=== PATIENT | female | born 1940 | race Caucasian/White ===

== ENCOUNTER → 2016-05-07 | Outpatient (CLI) | payer MEDICARE ==
[2016-05-07 13:42] LABS: CALCIUM LEVEL 9.4 MG/DL (8.8-10.2); CREATININE FOR GFR 1.25 MG/DL (0.55-1.02); GLOMERULAR FILTRATION RATE 44.6 (>39); POTASSIUM SERUM 4.8 MEQ/L (3.5-5.1)
== END ==
LOC: M WUC 10:16
PROVIDERS: ATTEND Nurse Practitioner Family
DX: Z91.89 Other specified personal risk factors, not elsewhere classified (principal)

== ENCOUNTER → 2016-08-26 | Outpatient (CLI) | payer MEDICARE ==
[2016-08-26 14:33] LABS: ALBUMIN 3.2 GM/DL (3.2-5.2); ALBUMIN/GLOBULIN RATIO 0.97 (1.00-1.93); BILIRUBIN,TOTAL 0.5 MG/DL (0.2-1.0); CALCIUM LEVEL 8.9 MG/DL (8.8-10.2); CREATININE FOR GFR 1.33 MG/DL (0.55-1.02); GLOMERULAR FILTRATION RATE 41.5 (>39); MAGNESIUM LEVEL 2.3 MG/DL (1.8-2.4); TOTAL PROTEIN 6.5 GM/DL (6.4-8.2)
== END ==
LOC: M WUC 09:47
PROVIDERS: ATTEND Internal Medicine
DX: E11.9 Type 2 diabetes mellitus without complications (principal); E78.00 Pure hypercholesterolemia, unspecified; I10 Essential (primary) hypertension

== ENCOUNTER → 2016-12-20 | Outpatient (CLI) | payer MEDICARE, OTHER ==
[2016-12-20 14:06] LABS: MEAN CORPUSCULAR HEMOGLOBIN 29.6 pg (27.0-33.0); MEAN CORPUSCULAR HGB CONC 32.1 g/dl (32.0-36.5)
[2016-12-20 14:43] LABS: ALBUMIN 3.2 GM/DL (3.2-5.2); ALBUMIN/GLOBULIN RATIO 0.97 (1.00-1.93); BILIRUBIN,DIRECT 0.1 MG/DL (0.0-0.2); BILIRUBIN,TOTAL 0.4 MG/DL (0.2-1.0); CREATININE FOR GFR 1.45 MG/DL (0.55-1.02); GLOMERULAR FILTRATION RATE 37.6 (>39); TOTAL PROTEIN 6.5 GM/DL (6.4-8.2)
== END ==
LOC: M WUC 12:26
PROVIDERS: ATTEND Internal Medicine
DX: Z79.899 Other long term (current) drug therapy (principal)

== ENCOUNTER → 2017-02-28 | Outpatient (CLI) | payer OTHER ==
[2017-02-28 14:09] LABS: MAGNESIUM LEVEL 2.2 MG/DL (1.8-2.4)
== END ==
LOC: M WUC 09:57
PROVIDERS: ATTEND Internal Medicine
DX: I10 Essential (primary) hypertension (principal); E78.00 Pure hypercholesterolemia, unspecified; E11.9 Type 2 diabetes mellitus without complications

== ENCOUNTER → 2017-03-04 | Outpatient (REF) | payer OTHER ==
[2017-03-04 13:32] LABS: MEAN CORPUSCULAR HEMOGLOBIN 28.7 pg (27.0-33.0); MEAN CORPUSCULAR HGB CONC 32.4 g/dl (32.0-36.5); MEAN CORPUSCULAR VOLUME 88.6 fl (80.0-96.0); PLATELET COUNT, AUTOMATED 420 10^3/uL (150-450); WHITE BLOOD COUNT 8.6 10^3/uL (4.0-10.0)
[2017-03-04 14:33] LABS: ALBUMIN 3.6 GM/DL (3.2-5.2); ALBUMIN/GLOBULIN RATIO 1.03 (1.00-1.93); BILIRUBIN,TOTAL 0.2 MG/DL (0.2-1.0); CALCIUM LEVEL 9.1 MG/DL (8.8-10.2); CREATININE FOR GFR 1.57 MG/DL (0.55-1.02); GLOMERULAR FILTRATION RATE 34.3 (>39); TOTAL PROTEIN 7.1 GM/DL (6.4-8.2)
== END ==
LOC: M SFHCPLAZ 11:51
PROVIDERS: ATTEND Internal Medicine
DX: E11.9 Type 2 diabetes mellitus without complications (principal); E03.9 Hypothyroidism, unspecified; Z51.81 Encounter for therapeutic drug level monitoring; Z79.899 Other long term (current) drug therapy

== ENCOUNTER → 2017-06-02 | Outpatient (CLI) | payer OTHER ==
[2017-06-02 17:08] LABS: ALT/SGPT 23 U/L (12-78); AST/SGOT 16 U/L (7-37); CREATININE FOR GFR 1.28 MG/DL (0.55-1.30); GLOMERULAR FILTRATION RATE 43.3 (>39)
[2017-06-02 17:29] LABS: HEMATOCRIT 33.6 % (36.0-47.0); HEMOGLOBIN 10.7 g/dl (12.0-16.0); MEAN CORPUSCULAR HEMOGLOBIN 27.8 pg (27.0-33.0); MEAN CORPUSCULAR HGB CONC 31.8 g/dl (32.0-36.5); MEAN CORPUSCULAR VOLUME 87.3 fl (80.0-96.0); PLATELET COUNT, AUTOMATED 412 10^3/uL (150-450); RED BLOOD COUNT 3.85 10^6/uL (4.00-5.40); RED CELL DISTRIBUTION WIDTH 18.3 % (11.5-14.5); WHITE BLOOD COUNT 9.4 10^3/uL (4.0-10.0)
== END ==
LOC: M WUC 12:01
DX: Z79.899 Other long term (current) drug therapy (principal)
CPT/HCPCS: 84460

== ENCOUNTER → 2017-08-05 | Outpatient (CLI) | payer MEDICARE ==
[2017-08-05 15:36] LABS: FREE T3 1.6 PG/ML (2.2-4.0); FREE T4 1.31 NG/DL (0.76-1.46); THYROID STIMULATING HORMONE 0.606 uIU/ML (0.358-3.740)
== END ==
LOC: M LAB 13:54
DX: Z01.818 Encounter for other preprocedural examination (principal); E03.9 Hypothyroidism, unspecified
CPT/HCPCS: 84443

== ENCOUNTER → 2017-08-05 | Outpatient (CLI) | payer MEDICARE ==
[2017-08-05 15:27] LABS: ANION GAP 7 MEQ/L (8-16); BLOOD UREA NITROGEN 25 MG/DL (7-18); CARBON DIOXIDE LEVEL 30 MEQ/L (21-32); CHLORIDE LEVEL 104 MEQ/L (98-107); CREATININE FOR GFR 1.66 MG/DL (0.55-1.30); GLOMERULAR FILTRATION RATE 32.1 (>39); GLUCOSE, FASTING 141 MG/DL (70-100); POTASSIUM SERUM 4.7 MEQ/L (3.5-5.1); SODIUM LEVEL 141 MEQ/L (136-145)
== END ==
LOC: M LAB 13:59
DX: Z01.89 Encounter for other specified special examinations (principal)

== ENCOUNTER → 2017-08-08 | Outpatient (CLI) | payer MEDICARE ==
[~2017-08-08] MED LIST: GASTROGRAFIN SOLUTION 30ML (Q9963) As Ordered; ISOVUE-370 76% 100ML VIAL (Q9967) As Ordered
== END ==
LOC: M RAD 12:00
DX: R10.33 Periumbilical pain (principal)
CPT/HCPCS: Q9963

== ENCOUNTER → 2017-09-19 | Outpatient (CLI) | payer MEDICARE ==
[2017-09-19 11:40] LABS: HEMATOCRIT 31.6 % (36.0-47.0); HEMOGLOBIN 10.1 g/dl (12.0-15.5); MEAN CORPUSCULAR HEMOGLOBIN 28.1 pg (27.0-33.0); MEAN CORPUSCULAR VOLUME 87.8 fl (80.0-96.0); PLATELET COUNT, AUTOMATED 401 10^3/uL (150-450); RED CELL DISTRIBUTION WIDTH 18.6 % (11.5-14.5); WHITE BLOOD COUNT 8.7 10^3/uL (4.0-10.0)
[2017-09-19 11:52] LABS: ESTIMATED AVERAGE GLUCOSE 171 MG/DL (60-110); HEMOGLOBIN A1c 7.6 %
[2017-09-19 12:45] LABS: ALBUMIN 3.4 GM/DL (3.2-5.2); ALBUMIN/GLOBULIN RATIO 1.03 (1.00-1.93); ALKALINE PHOSPHATASE 116 U/L (45-117); ALT/SGPT 21 U/L (12-78); ANION GAP 8 MEQ/L (8-16); AST/SGOT 12 U/L (7-37); BILIRUBIN,TOTAL 0.4 MG/DL (0.2-1.0); BLOOD UREA NITROGEN 24 MG/DL (7-18); CALCIUM LEVEL 8.8 MG/DL (8.8-10.2); CARBON DIOXIDE LEVEL 30 MEQ/L (21-32); CHLORIDE LEVEL 103 MEQ/L (98-107); CHOLESTEROL LEVEL 124 MG/DL (<200); CHOLESTEROL RISK RATIO 3.542 (<5); CREATININE FOR GFR 1.62 MG/DL (0.55-1.30); GLUCOSE, FASTING 140 MG/DL (70-100); HDL CHOLESTEROL 35 MG/DL (>40); MAGNESIUM LEVEL 1.9 MG/DL (1.8-2.4); NON-HDL-C 89 MG/DL; SODIUM LEVEL 141 MEQ/L (136-145); TOTAL PROTEIN 6.7 GM/DL (6.4-8.2); TRIGLYCERIDES LEVEL 160 MG/DL (<150)
== END ==
LOC: M WUC 10:02
DX: I10 Essential (primary) hypertension (principal); E11.9 Type 2 diabetes mellitus without complications; E78.00 Pure hypercholesterolemia, unspecified; Z51.81 Encounter for therapeutic drug level monitoring; Z79.899 Other long term (current) drug therapy
CPT/HCPCS: 83735

== ENCOUNTER → 2017-12-31 | Outpatient (CLI) | payer MEDICARE | LOC: M RAD 11:25 | DX: M25.531 Pain in right wrist (principal); Z53.8 Procedure and treatment not carried out for other reasons ==

== ENCOUNTER → 2018-02-16 | Outpatient (CLI) | payer MEDICARE ==
[2018-02-16 12:48] LABS: HEMATOCRIT 33.2 % (36.0-47.0); HEMOGLOBIN 10.5 g/dl (12.0-15.5); MEAN CORPUSCULAR HEMOGLOBIN 27.9 pg (27.0-33.0); MEAN CORPUSCULAR HGB CONC 31.6 g/dl (32.0-36.5); MEAN CORPUSCULAR VOLUME 88.3 fl (80.0-96.0); PLATELET COUNT, AUTOMATED 368 10^3/uL (150-450); RED BLOOD COUNT 3.76 10^6/uL (4.00-5.40); RED CELL DISTRIBUTION WIDTH 19.9 % (11.5-14.5); WHITE BLOOD COUNT 10.1 10^3/uL (4.0-10.0)
[2018-02-16 13:55] LABS: ALBUMIN 3.3 GM/DL (3.2-5.2); ALBUMIN/GLOBULIN RATIO 0.97 (1.00-1.93); ALKALINE PHOSPHATASE 117 U/L (45-117); ALT/SGPT 17 U/L (12-78); ANION GAP 9 MEQ/L (8-16); AST/SGOT 12 U/L (7-37); BILIRUBIN,TOTAL 0.3 MG/DL (0.2-1.0); BLOOD UREA NITROGEN 29 MG/DL (7-18); CALCIUM LEVEL 8.7 MG/DL (8.8-10.2); CARBON DIOXIDE LEVEL 27 MEQ/L (21-32); CHLORIDE LEVEL 105 MEQ/L (98-107); CREATININE FOR GFR 1.54 MG/DL (0.55-1.30); GLUCOSE, FASTING 172 MG/DL (70-100); POTASSIUM SERUM 4.8 MEQ/L (3.5-5.1); SODIUM LEVEL 141 MEQ/L (136-145); TOTAL PROTEIN 6.7 GM/DL (6.4-8.2)
== END ==
LOC: M WUC 10:39
DX: L40.50 Arthropathic psoriasis, unspecified (principal); Z79.899 Other long term (current) drug therapy
CPT/HCPCS: 80053

== ENCOUNTER → 2018-03-27 | Outpatient (REF) | payer MEDICARE, MEDICAID ==
[2018-03-27 12:15] LABS: HEMATOCRIT 33.6 % (36.0-47.0); HEMOGLOBIN 10.6 g/dl (12.0-15.5); MEAN CORPUSCULAR HEMOGLOBIN 28.4 pg (27.0-33.0); MEAN CORPUSCULAR HGB CONC 31.5 g/dl (32.0-36.5); MEAN CORPUSCULAR VOLUME 90.1 fl (80.0-96.0); PLATELET COUNT, AUTOMATED 447 10^3/uL (150-450); RED BLOOD COUNT 3.73 10^6/uL (4.00-5.40); WHITE BLOOD COUNT 9.8 10^3/uL (4.0-10.0)
[2018-03-27 12:25] LABS: ALBUMIN 3.6 GM/DL (3.2-5.2); BILIRUBIN,TOTAL 0.4 MG/DL (0.2-1.0); CALCIUM LEVEL 9.2 MG/DL (8.8-10.2); CREATININE FOR GFR 1.38 MG/DL (0.55-1.30); FREE T4 1.58 NG/DL (0.76-1.46); GLOMERULAR FILTRATION RATE 39.7 (>39); MAGNESIUM LEVEL 1.7 MG/DL (1.8-2.4); POTASSIUM SERUM 4.7 MEQ/L (3.5-5.1); THYROID STIMULATING HORMONE 0.84 uIU/ML (0.358-3.740); TOTAL PROTEIN 6.9 GM/DL (6.4-8.2)
[2018-03-27 12:28] LABS: PTH INTACT 84.3 PG/ML (18.5-88.0)
[2018-03-27 12:29] LABS: HEMOGLOBIN A1c 7.3 %
[2018-03-27 12:53] LABS: CREATININE, URINE 80.8 MG/DL; MALB URINE SIEMENS 6.6 MG/L; MAU/CREAT RATIO 8.1 MCG/MG (0.0-30.0)
== END ==
LOC: M SFHCPLAZ 10:36
PROVIDERS: ATTEND Internal Medicine
DX: Z51.81 Encounter for therapeutic drug level monitoring (principal); Z79.899 Other long term (current) drug therapy; L40.50 Arthropathic psoriasis, unspecified; E03.9 Hypothyroidism, unspecified; E11.22 Type 2 diabetes mellitus with diabetic chronic kidney disease; N18.3 Chronic kidney disease, stage 3 (moderate)

== ENCOUNTER → 2018-04-20 | Outpatient (CLI) | payer MEDICARE, MEDICAID ==
--- NOTE | 2018-04-20 09:31 | REP ---
CT chest without contrast: History: Pulmonary nodule. Comparison chest CT study is from November 01, 2017. This is reported as showing a 4 mm nodule in the right upper lobe. Comparison study is also reviewed from August 08, 2017. Findings: On today's CT study, the 4 mm right upper lobe nodule displays a maximum Hounsfield unit density # of 346. It is felt to be consistent with a benign granuloma. There is mild linear fibrosis anteromedially in the right upper lobe. This is unchanged. There is bilateral lower lobe fibro atelectatic change which is also status quo from the prior study. There are multiple calcified granulomata in the right middle lobe unchanged. There is stable noncalcified nodule in the right middle lobe which measures 5 mm. This is seen on page 45 of 98 in series 201 of today's study. There are scattered mediastinal lymph nodes again noted. The largest of these is a pretracheal lymph node which measures 8 mm in short axis dimension. There is a 7 mm pretracheal lymph node just proximal to this. No evidence of adenopathy. No adrenal lesion is observed. There are clips in the gallbladder fossa. The visualized upper abdominal structures are otherwise unremarkable. Impression: Stable noncalcified 5 mm right middle lobe guerrero bronchovascular nodule unchanged from November 01, 2017. The 4 mm nodule in the right upper lobe is stable but today's CT images suggest that it is a benign calcified granuloma. There are other granulomatous calcifications in the right middle lobe and there is bibasilar fibrosis again noted. Repeat chest CT study suggested 1 year. Electronically Signed by Gume Mock MD 04/20/2018 09:22 A
== END ==
LOC: M RAD 06:50
PROVIDERS: ATTEND Internal Medicine
DX: R91.1 Solitary pulmonary nodule (principal)

== ENCOUNTER → 2018-06-25 | Outpatient (REF) | payer MEDICARE, MEDICAID ==
[2018-06-25 14:00] LABS: FOLATE > 24.0 NG/ML (>5.4); FREE T4 1.58 NG/DL (0.76-1.46); RHEUMATOID FACTOR QUANT < 10.0 IU/ML (<15.0); THYROID STIMULATING HORMONE 0.356 uIU/ML (0.358-3.740); VITAMIN B12 LEVEL 345 PG/ML (247-911)
[2018-06-30 15:03] LABS: ANTI DOUBLE STRAND-DNA AB 38 IU/mL (0-9); ANTINUCLEAR ANTIBODIES DIRECT Positive (Negative); Lyme Disease IgG/IgM Antibodie <0.91 ISR (0.00-0.90); Lyme Disease IgM Ab Quantitati <0.80 index (0.00-0.79); RNP ANTIBODIES <0.2 AI (0.0-0.9); SJOGREN'S ANTI SS-A <0.2 AI (0.0-0.9); SJOGREN'S ANTI SS-B <0.2 AI (0.0-0.9); SMITH ANTIBODIES <0.2 AI (0.0-0.9); VITAMIN B1 LEVEL WHOLE BLOOD 260.4 nmol/L (66.5-200.0); VITAMIN B6,PYRIDOXAL PHOSPHATE 8.8 ug/L (2.0-32.8); VITAMIN E(ALPHA TOCOPHEROL) 15.9 mg/L (9.0-29.0); VITAMIN E(GAMMA TOCOPHEROL) 2.2 mg/L (0.5-4.9)
== END ==
LOC: M LABNEURO 10:48
PROVIDERS: ATTEND Psychiatry & Neurology Neurology
DX: R20.0 Anesthesia of skin (principal); R51 Headache; E07.9 Disorder of thyroid, unspecified; Z11.8 Encounter for screening for other infectious and parasitic diseases

== ENCOUNTER → 2018-08-12 | Outpatient (REF) | payer MEDICARE, MEDICAID ==
[2018-08-12 12:28] LABS: HEMATOCRIT 33.6 % (36.0-47.0); HEMOGLOBIN 10.6 g/dl (12.0-15.5); MEAN CORPUSCULAR HEMOGLOBIN 27.9 pg (27.0-33.0); MEAN CORPUSCULAR HGB CONC 31.5 g/dl (32.0-36.5); MEAN CORPUSCULAR VOLUME 88.4 fl (80.0-96.0); PLATELET COUNT, AUTOMATED 348 10^3/uL (150-450); WHITE BLOOD COUNT 6.8 10^3/uL (4.0-10.0)
[2018-08-12 12:49] LABS: ALBUMIN 3.3 GM/DL (3.2-5.2); BILIRUBIN,TOTAL 0.5 MG/DL (0.2-1.0); CALCIUM LEVEL 9.2 MG/DL (8.8-10.2); CHOLESTEROL RISK RATIO 3.891 (<5); CREATININE FOR GFR 1.4 MG/DL (0.55-1.30); GLOMERULAR FILTRATION RATE 38.9 (>39); MAGNESIUM LEVEL 2.1 MG/DL (1.8-2.4); PTH INTACT 59.9 PG/ML (18.5-88.0); TOTAL PROTEIN 6.7 GM/DL (6.4-8.2)
[2018-08-12 13:40] LABS: HEMOGLOBIN A1c 7.4 %
== END ==
LOC: M SFHCPLAZ 09:30
PROVIDERS: ATTEND Internal Medicine
DX: N18.3 Chronic kidney disease, stage 3 (moderate) (principal); D63.1 Anemia in chronic kidney disease; E78.00 Pure hypercholesterolemia, unspecified; E11.9 Type 2 diabetes mellitus without complications

== ENCOUNTER → 2018-11-02 | Outpatient (REF) | payer MEDICARE, MEDICAID | LOC: M LAB REF 12:50 | PROVIDERS: ATTEND Internal Medicine Gastroenterology | DX: R19.7 Diarrhea, unspecified (principal); R10.11 Right upper quadrant pain; R11.0 Nausea; R14.3 Flatulence ==

== ENCOUNTER → 2018-11-23 | Outpatient (CLI) | payer MEDICARE, MEDICAID ==
[2018-11-23 10:14] LABS: BASO # 0.1 10^3/uL (0.0-0.2); BASO % 1.1 % (0.0-1.0); EOS # 0.6 10^3/uL (0.0-0.5); EOS % 6.6 % (0.0-3.0); HEMATOCRIT 37.8 % (36.0-47.0); HEMOGLOBIN 12.1 g/dl (12.0-15.5); LYMPH # 1.6 10^3/uL (1.5-5.0); MEAN CORPUSCULAR HEMOGLOBIN 30.3 pg (27.0-33.0); MEAN CORPUSCULAR VOLUME 94.7 fl (80.0-96.0); MONO # 0.5 10^3/uL (0.0-0.8); PLATELET COUNT, AUTOMATED 316 10^3/uL (150-450); RED BLOOD COUNT 3.99 10^6/uL (4.00-5.40); WHITE BLOOD COUNT 8.8 10^3/uL (4.0-10.0)
[2018-11-23 10:35] LABS: ERYTHROCYTE SEDIMENTATION RATE 15 mm/hr (0-30)
[2018-11-23 10:56] LABS: ALBUMIN 3.5 GM/DL (3.2-5.2); BILIRUBIN,TOTAL 0.3 MG/DL (0.2-1.0); CALCIUM LEVEL 9.4 MG/DL (8.8-10.2); CREATININE FOR GFR 1.61 MG/DL (0.55-1.30); GLOMERULAR FILTRATION RATE 33.1 (>39); POTASSIUM SERUM 5.1 MEQ/L (3.5-5.1); TOTAL PROTEIN 6.9 GM/DL (6.4-8.2)
== END ==
LOC: M LAB 09:27
PROVIDERS: ATTEND Internal Medicine Rheumatology
DX: L40.50 Arthropathic psoriasis, unspecified (principal)

== ENCOUNTER → 2019-02-18 | Outpatient (REF) | payer MEDICARE, MEDICAID | LOC: M SFHCPLAZ 13:25 | PROVIDERS: ATTEND Nurse Practitioner Adult Health | DX: R30.0 Dysuria (principal) ==

== ENCOUNTER → 2019-02-18 | Outpatient (REF) | payer MEDICARE, MEDICAID ==
[2019-02-18 12:30] LABS: HEMATOCRIT 38.2 % (36.0-47.0); HEMOGLOBIN 12.1 g/dl (12.0-15.5); MEAN CORPUSCULAR HEMOGLOBIN 30.9 pg (27.0-33.0); MEAN CORPUSCULAR HGB CONC 31.7 g/dl (32.0-36.5); MEAN CORPUSCULAR VOLUME 97.7 fl (80.0-96.0); PLATELET COUNT, AUTOMATED 281 10^3/uL (150-450); RED BLOOD COUNT 3.91 10^6/uL (4.00-5.40); WHITE BLOOD COUNT 7.1 10^3/uL (4.0-10.0)
[2019-02-18 12:37] LABS: ALBUMIN 3.5 GM/DL (3.2-5.2); BILIRUBIN,TOTAL 0.4 MG/DL (0.2-1.0); CHOLESTEROL RISK RATIO 3.239 (<5); CREATININE FOR GFR 1.47 MG/DL (0.55-1.30); FREE T3 1.8 PG/ML (2.2-4.0); FREE T4 1.65 NG/DL (0.76-1.46); GLOMERULAR FILTRATION RATE 36.8 (>39); MAGNESIUM LEVEL 2.2 MG/DL (1.8-2.4); POTASSIUM SERUM 4.7 MEQ/L (3.5-5.1); PTH INTACT 74.8 PG/ML (18.5-88.0); THYROID STIMULATING HORMONE 0.409 uIU/ML (0.358-3.740); TOTAL PROTEIN 6.4 GM/DL (6.4-8.2)
[2019-02-18 12:48] LABS: HEMOGLOBIN A1c 7.4 %
== END ==
LOC: M SFHCPLAZ 09:45
PROVIDERS: ATTEND Internal Medicine
DX: I12.9 Hypertensive chronic kidney disease with stage 1 through stage 4 chronic kidney disease, or unspecified chronic kidney disease (principal); D63.1 Anemia in chronic kidney disease; E03.9 Hypothyroidism, unspecified; E11.9 Type 2 diabetes mellitus without complications; E78.00 Pure hypercholesterolemia, unspecified; N18.3 Chronic kidney disease, stage 3 (moderate); R30.0 Dysuria

== ENCOUNTER → 2019-04-14 | Outpatient (CLI) | payer MEDICARE, MEDICAID ==
[2019-04-14 16:16] LABS: CREATININE FOR GFR 1.5 MG/DL (0.55-1.30); GLOMERULAR FILTRATION RATE 35.8 (>39)
== END ==
LOC: M LAB 15:17
PROVIDERS: ATTEND Internal Medicine Gastroenterology
DX: R19.7 Diarrhea, unspecified (principal); R10.9 Unspecified abdominal pain

== ENCOUNTER → 2019-04-16 | Outpatient (CLI) | payer MEDICARE, MEDICAID ==
[~2019-04-16] MED LIST changes: -GASTROGRAFIN SOLUTION 30ML (Q9963) As Ordered; +GASTROGRAFIN SOLUTION 30ML (Q9963) As Ordered ONE; -ISOVUE-370 76% 100ML VIAL (Q9967) As Ordered; +ISOVUE-370 76% 100ML VIAL (Q9967) As Ordered ONE
--- NOTE | 2019-04-16 15:50 | REPVR ---
PROCEDURE INFORMATION: Exam: CT Abdomen And Pelvis With Contrast Exam date and time: 04/16/2019 3:01 PM Age: 79 years old Clinical indication: Abdominal pain; Generalized; Additional info: Diarrhea, abd pain TECHNIQUE: Imaging protocol: Computed tomography of the abdomen and pelvis with intravenous contrast. Radiation optimization: All CT scans at this facility use at least one of these dose optimization techniques: automated exposure control; mA and/or kV adjustment per patient size (includes targeted exams where dose is matched to clinical indication); or iterative reconstruction. Contrast material: ISOVUE 370; Contrast volume: 100 ml; Contrast route: IV; COMPARISON: CT ABD PELVIS WITH CONTRAST 08/08/2017 2:21 PM FINDINGS: Lungs: Mild atelectasis and scarring is present at the lung bases. Pleural space: There is again mild right basilar pleural thickening or effusion. Liver: The liver is fatty in density. It appears otherwise unremarkable. Gallbladder and bile ducts: Cholecystectomy clips are again present. Pancreas: Normal. No ductal dilation. Spleen: Normal. No splenomegaly. Adrenals: Normal. No mass. Kidneys and ureters: The kidneys again demonstrate mild cortical thinning. The right contains a stable 4 mm hypodense lesion, too small to characterize, but homogeneous and not requiring follow-up. Stomach and bowel: The small bowel is not obstructed. There is again mild descending and sigmoid colonic diverticulosis without evidence for diverticulitis. The large bowel is otherwise grossly unremarkable in appearance. Appendix: The appendix is not identified, compatible with the previously given history of prior appendectomy. Intraperitoneal space: No free air or significant free fluid. Vasculature: Unremarkable. No abdominal aortic aneurysm. Lymph nodes: There is a fairly similar appearance to multiple prominent but subcentimeter short axis mesenteric lymph nodes and. A mildly enlarged alison hepatis lymph node measuring 13 mm short axis appears fairly similar. No new pathologic lymphadenopathy is identified. Bladder: Grossly unremarkable. Reproductive: There has again been hysterectomy. No gross adnexal abnormality is apparent, but ultrasound would be more appropriate in this regard. Bones/joints: Degenerative changes again involve the spine and hips. Soft tissues: There is again scarring along the low anterior pelvic wall. There is again soft tissue thickening about the umbilicus, probably some scarring. IMPRESSION: Nonurgent findings similar to 08/03 08/01, without acute abnormality identified. This includes some prominent but subcentimeter short axis mesenteric lymph nodes and a mildly enlarged alison hepatis lymph node. Electronically signed by: Tim Worley On 04/16/2019 15:51:41 PM
== END ==
LOC: M RAD 12:57
PROVIDERS: ATTEND Internal Medicine Gastroenterology
DX: R19.7 Diarrhea, unspecified (principal); R10.9 Unspecified abdominal pain
CPT/HCPCS: 74177; Q9963; Q9967

== ENCOUNTER 2019-07-19 14:53 | Emergency (ER) | payer MEDICARE, MEDICAID ==
[~2019-07-19] VITALS: Ht 160 cm; Wt 89.0 kg
[2019-07-19] MEDS ORDERED: LEVO112T2 (15:08)
[2019-07-19] MEDS ORDERED: FURO20TA2 (15:08)
[2019-07-19] MEDS ORDERED: METF500T13 (15:08)
[2019-07-19] MEDS ORDERED: METH2.5T48 (15:08)
[2019-07-19] MEDS ORDERED: PROP160C (15:08)
[2019-07-19] MEDS ORDERED: LISI-538 (15:08)
[2019-07-19] MEDS ORDERED: FOLI1TAB11 (15:08)
[2019-07-19] MEDS ORDERED: FLUTISP (15:08)
[2019-07-19] MEDS ORDERED: GLIP5TAB8 (15:08)
[2019-07-19 17:17] VITALS: BP 147/72
--- NOTE | 2019-07-19 17:46 | REP ---
DEEP VENOUS ULTRASONOGRAPHY RIGHT THIGH, RULE OUT DVT: REASON: Pain, swelling, and erythema. TECHNIQUE: Multiple ultrasonographic images of the deep venous structures of the thigh were obtained from the common femoral vein to the popliteal vein along with Doppler interrogation and color flow Doppler images. FINDINGS: There is no abnormal echogenic material seen within any of the visualized deep venous structures that would suggest acute thrombosis. Coaptation is unremarkable throughout. Doppler interrogation shows an expected response to respiratory variability and augmentation. The color flow images show what appears to be a normal vascular pattern throughout. IMPRESSION: There is no ultrasonographic evidence of deep venous thrombosis involving any of the visualized deep venous structures of the right thigh, as described above. Electronically Signed by Jim Castro DO 07/19/2019 06:12 P
== END 2019-07-19 17:18 | disposition home or self-care (01) ==
LOC: M ED 14:53
DX: M54.31 Sciatica, right side (principal); I12.9 Hypertensive chronic kidney disease with stage 1 through stage 4 chronic kidney disease, or unspecified chronic kidney disease; N18.3 Chronic kidney disease, stage 3 (moderate); E11.22 Type 2 diabetes mellitus with diabetic chronic kidney disease; E03.9 Hypothyroidism, unspecified; K57.92 Diverticulitis of intestine, part unspecified, without perforation or abscess without bleeding; L40.54 Psoriatic juvenile arthropathy; Z88.2 Allergy status to sulfonamides; Z88.8 Allergy status to other drugs, medicaments and biological substances; Z91.02 Food additives allergy status; Z79.899 Other long term (current) drug therapy; Z79.84 Long term (current) use of oral hypoglycemic drugs

== ENCOUNTER → 2019-07-29 | Outpatient (CLI) | payer MEDICARE, MEDICAID ==
[~2019-07-29] MED LIST changes: +FLUTISP; +FOLI1TAB11; +FURO20TA2; -GASTROGRAFIN SOLUTION 30ML (Q9963) As Ordered ONE; +GLIP5TAB8; -ISOVUE-370 76% 100ML VIAL (Q9967) As Ordered ONE; +LEVO112T2; +LISI-538; +METF500T13; +METH2.5T48; +PROP160C
== END ==
LOC: M LABSMTC 11:17
PROVIDERS: ATTEND Family Medicine
DX: Z11.59 Encounter for screening for other viral diseases (principal)
CPT/HCPCS: C9803; U0003

== ENCOUNTER → 2019-08-18 | Outpatient (REF) | payer MEDICARE, MEDICAID ==
[2019-08-18 12:54] LABS: HEMOGLOBIN 12.9 g/dl (12.0-15.5); MEAN CORPUSCULAR HEMOGLOBIN 33.1 pg (27.0-33.0); MEAN CORPUSCULAR HGB CONC 33.1 g/dl (32.0-36.5); PLATELET COUNT, AUTOMATED 275 10^3/uL (150-450); WHITE BLOOD COUNT 7.4 10^3/uL (4.0-10.0)
[2019-08-18 13:20] LABS: MALB URINE SIEMENS 78.4 MG/L; MAU/CREAT RATIO 19.8 MCG/MG (0.0-30.0)
[2019-08-18 13:25] LABS: ERYTHROCYTE SEDIMENTATION RATE 14 mm/hr (0-30)
[2019-08-18 13:30] LABS: ALBUMIN 3.4 GM/DL (3.2-5.2); BILIRUBIN,TOTAL 0.6 MG/DL (0.2-1.0); C REACTIVE PROTEIN QUANTITATIV 1.26 MG/DL (0.00-0.30); CALCIUM LEVEL 9.1 MG/DL (8.8-10.2); CREATININE FOR GFR 1.39 MG/DL (0.55-1.30); FREE T3 2.1 PG/ML (2.2-4.0); FREE T4 1.59 NG/DL (0.76-1.46); GLOMERULAR FILTRATION RATE 39.1 (>39); POTASSIUM SERUM 5.2 MEQ/L (3.5-5.1); THYROID STIMULATING HORMONE 0.356 uIU/ML (0.358-3.740); TOTAL PROTEIN 6.7 GM/DL (6.4-8.2)
[2019-08-18 14:15] LABS: HEMOGLOBIN A1c 7.1 %
== END ==
LOC: M PLALAB 10:11
PROVIDERS: ATTEND Internal Medicine
DX: N18.9 Chronic kidney disease, unspecified (principal); L40.50 Arthropathic psoriasis, unspecified; E03.9 Hypothyroidism, unspecified; E11.9 Type 2 diabetes mellitus without complications; E78.00 Pure hypercholesterolemia, unspecified; D63.1 Anemia in chronic kidney disease

== ENCOUNTER → 2019-09-14 | Outpatient (CLI) | payer MEDICARE, MEDICAID ==
--- NOTE | 2019-09-14 14:44 | REP ---
Clinical: Pulmonary nodule follow-up. Technique: Axial noncontrast images from the thoracic inlet to the upper abdomen with coronal and sagittal re-formations. Comparison: 04/20/2018. Findings: 4 mm noncalcified nodule in the right apex and 5 mm noncalcified peribronchial nodule in the right middle lobe along with few scattered calcified granulomata and minimal bibasilar fibro atelectatic changes remain stable. The lung krueger are otherwise relatively well aerated and without acute consolidation, new significant nodule or mass lesion. No pleural effusion. No pneumothorax. No significant adenopathy. Further evaluation of the mediastinum demonstrates relatively normal stable thoracic aorta, pulmonary vasculature and heart/pericardium. Musculoskeletal structures without acute osseous abnormality. Limited upper abdomen demonstrates normal bilateral adrenal glands and evidence of prior cholecystectomy. Impression: 1. Stable right upper lobe and right middle lobe noncalcified nodules along with chronic granulomatous changes. Consider 6-9 month follow-up reevaluation to confirm benignity and stability. 2. No acute mediastinal or pleuroparenchymal process. Electronically Signed by Geovanny Parra MD 09/14/2019 02:36 P
== END ==
LOC: M RAD 14:00
PROVIDERS: ATTEND Internal Medicine
DX: R91.1 Solitary pulmonary nodule (principal)

== ENCOUNTER → 2019-12-30 | Outpatient (REF) | payer OTHER, MEDICAID ==
[2019-12-30 14:08] LABS: BASO # 0.1 10^3/uL (0.0-0.2); BASO % 1.2 % (0.0-1.0); EOS # 0.4 10^3/uL (0.0-0.5); EOS % 5.2 % (0.0-3.0); LYMPH # 1.8 10^3/uL (1.5-5.0); LYMPH % 25.5 % (24.0-44.0); MEAN CORPUSCULAR HGB CONC 32.5 g/dl (32.0-36.5); MEAN CORPUSCULAR VOLUME 98.5 fl (80.0-96.0); MONO # 0.7 10^3/uL (0.0-0.8); MONO % 9.6 % (0.0-5.0); NEUTROPHILS % 58.2 % (36.0-66.0); PLATELET COUNT, AUTOMATED 270 10^3/uL (150-450); RED BLOOD COUNT 4.06 10^6/uL (4.00-5.40); WHITE BLOOD COUNT 6.9 10^3/uL (4.0-10.0)
[2019-12-30 14:42] LABS: ALBUMIN 3.5 GM/DL (3.2-5.2); BILIRUBIN,TOTAL 0.5 MG/DL (0.2-1.0); C REACTIVE PROTEIN QUANTITATIV 0.3 MG/DL (0.00-0.30); CALCIUM LEVEL 9.1 MG/DL (8.8-10.2); CHOLESTEROL RISK RATIO 3.4 (<5); CREATININE FOR GFR 1.57 MG/DL (0.55-1.30); MAGNESIUM LEVEL 2.1 MG/DL (1.8-2.4); POTASSIUM SERUM 5.2 MEQ/L (3.5-5.1); THYROID STIMULATING HORMONE 0.526 uIU/ML (0.358-3.740); TOTAL PROTEIN 6.6 GM/DL (6.4-8.2)
[2019-12-30 14:57] LABS: HEMOGLOBIN A1c 6.8 %
[2019-12-30 15:29] LABS: ERYTHROCYTE SEDIMENTATION RATE 10 mm/hr (0-30)
== END ==
LOC: M PLALAB 10:10
PROVIDERS: ATTEND Internal Medicine
DX: G47.30 Sleep apnea, unspecified (principal); E11.9 Type 2 diabetes mellitus without complications; L40.50 Arthropathic psoriasis, unspecified; E78.00 Pure hypercholesterolemia, unspecified; I12.9 Hypertensive chronic kidney disease with stage 1 through stage 4 chronic kidney disease, or unspecified chronic kidney disease; E03.9 Hypothyroidism, unspecified

== ENCOUNTER → 2020-01-03 | Outpatient (REF) | payer OTHER, MEDICAID ==
[2020-01-03 19:05] LABS: CREATININE, URINE 36.6 MG/DL; MALB URINE SIEMENS < 5.0 MG/L; MAU/CREAT RATIO 13.6 MCG/MG (0.0-30.0)
== END ==
LOC: M SFHCPLAZ 16:47
PROVIDERS: ATTEND Internal Medicine
DX: E11.9 Type 2 diabetes mellitus without complications (principal); Z23 Encounter for immunization
CPT/HCPCS: 82043; 90682; G0008; G0463

== ENCOUNTER → 2020-03-01 | Outpatient (CLI) | payer OTHER, MEDICAID ==
[~2020-03-01] MED LIST changes: +FLON1SPR; +FOLI1TAB11 PO; +FURO20TA2 PO; +GLIP5TAB8 PO; +LANS30CA PO; -LISI-538; +LISI-538 PO; +MAGN400T3 PO; +METH2.5T48 PO; +PROP160C PO; +SULI150T; +SULI150T PO; +SYNT112T2 PO; +VITMTA PO
--- NOTE | 2020-03-01 15:24 | REPPI ---
INDICATION: SHORTNESS OF BREATH. COMPARISON: Comparison chest CT study September 14, 2019. TECHNIQUE: Two views.. FINDINGS: Right hemidiaphragm remains somewhat elevated. There is mild linear fibrosis in both perihilar regions unchanged. Pleural angles are sharp. Heart is felt to be mildly enlarged but is unchanged. There are clips in right upper quadrant of the abdomen. No evidence of pleural effusion. Pulmonary vasculature is not increased. There are degenerative changes in the thoracic spine. No acute bony abnormality. IMPRESSION: Elevated right hemidiaphragm and bibasilar linear fibrosis similar to the September 14, 2019 CT findings. Otherwise no active disease. <Electronically signed by Omar Mock > 03/01/20 [id number]
== END ==
LOC: M PLAIMG 11:41
PROVIDERS: ATTEND Physician Assistant
DX: J84.10 Pulmonary fibrosis, unspecified (principal); M51.34 Other intervertebral disc degeneration, thoracic region; R06.02 Shortness of breath; Z20.828 Contact with and (suspected) exposure to other viral communicable diseases
CPT/HCPCS: 36415; 71046; 80053; 83605; 85025; U0003

== ENCOUNTER → 2020-03-03 | Outpatient (REF) | payer OTHER, MEDICAID ==
[2020-03-03 15:05] LABS: BASO # 0.1 10^3/uL (0.0-0.2); BASO % 0.8 % (0.0-1.0); EOS # 0.4 10^3/uL (0.0-0.5); EOS % 2.9 % (0.0-3.0); HEMATOCRIT 39.5 % (36.0-47.0); HEMOGLOBIN 12.6 g/dl (12.0-15.5); LYMPH # 2.3 10^3/uL (1.5-5.0); LYMPH % 19.3 % (24.0-44.0); MEAN CORPUSCULAR HEMOGLOBIN 31.4 pg (27.0-33.0); MEAN CORPUSCULAR HGB CONC 31.9 g/dl (32.0-36.5); MEAN CORPUSCULAR VOLUME 98.5 fl (80.0-96.0); MONO # 1.2 10^3/uL (0.0-0.8); MONO % 9.6 % (0.0-5.0); PLATELET COUNT, AUTOMATED 413 10^3/uL (150-450); RED BLOOD COUNT 4.01 10^6/uL (4.00-5.40)
[2020-03-03 15:21] LABS: ALBUMIN 3.3 GM/DL (3.2-5.2); BILIRUBIN,TOTAL 0.5 MG/DL (0.2-1.0); CALCIUM LEVEL 9.4 MG/DL (8.8-10.2); CREATININE FOR GFR 1.76 MG/DL (0.55-1.30); GLOMERULAR FILTRATION RATE 29.8 (>39); POTASSIUM SERUM 5.2 MEQ/L (3.5-5.1); TOTAL PROTEIN 6.9 GM/DL (6.4-8.2)
== END ==
LOC: M SFHCLERA 14:02
PROVIDERS: ATTEND Physician Assistant
DX: R89.9 Unspecified abnormal finding in specimens from other organs, systems and tissues (principal)

== ENCOUNTER → 2020-03-06 | Outpatient (REF) | payer OTHER, MEDICAID | LOC: M SFHCPLAZ 13:17 | PROVIDERS: ATTEND Physician Assistant | DX: R89.9 Unspecified abnormal finding in specimens from other organs, systems and tissues (principal) ==

== ENCOUNTER → 2020-03-07 | Outpatient (CLI) | payer OTHER, MEDICAID ==
[2020-03-07 18:02] LABS: BASO % 0.5 % (0.0-1.0); EOS % 0.6 % (0.0-3.0); HEMATOCRIT 38.9 % (36.0-47.0); HEMOGLOBIN 12.4 g/dl (12.0-15.5); LYMPH # 0.9 10^3/uL (1.5-5.0); MEAN CORPUSCULAR HEMOGLOBIN 31.2 pg (27.0-33.0); MEAN CORPUSCULAR HGB CONC 31.9 g/dl (32.0-36.5); MEAN CORPUSCULAR VOLUME 97.7 fl (80.0-96.0); MONO # 0.8 10^3/uL (0.0-0.8); MONO % 12.2 % (0.0-5.0); NEUTROPHILS # 4.8 10^3/uL (1.5-8.5); NEUTROPHILS % 73.4 % (36.0-66.0); PLATELET COUNT, AUTOMATED 314 10^3/uL (150-450); RED BLOOD COUNT 3.98 10^6/uL (4.00-5.40); WHITE BLOOD COUNT 6.6 10^3/uL (4.0-10.0)
== END ==
LOC: M LAB 16:49
PROVIDERS: ATTEND Internal Medicine
DX: R50.9 Fever, unspecified (principal); R05 Cough

== ENCOUNTER 2020-03-08 22:16 | Inpatient (IN) | payer OTHER, MEDICAID ==
[~2020-03-08] VITALS: Ht 160 cm; Wt 98.3 kg
[~2020-03-08 22:16] MED LIST changes: -FLON1SPR; -FOLI1TAB11 PO; -FURO20TA2 PO; -GLIP5TAB8 PO; -LANS30CA PO; -MAGN400T3 PO; -METH2.5T48 PO; -PROP160C PO; -SULI150T; -SULI150T PO; -SYNT112T2 PO; -VITMTA PO
[2020-03-08] MEDS ORDERED: SULI150T (22:28)
[2020-03-08] MEDS ORDERED: VANCOMYCIN 1000MG/20ML VIAL IP ONE (23:00)
[2020-03-08] MEDS ORDERED: NS 1,000 ML IV SCH (23:00)
[2020-03-08 23:14] LABS: BASO % 0.3 % (0.0-1.0); EOS # 0.1 10^3/uL (0.0-0.5); HEMATOCRIT 36.9 % (36.0-47.0); HEMOGLOBIN 11.9 g/dl (12.0-15.5); LYMPH % 14.3 % (24.0-44.0); MEAN CORPUSCULAR HEMOGLOBIN 31.2 pg (27.0-33.0); MEAN CORPUSCULAR HGB CONC 32.2 g/dl (32.0-36.5); MEAN CORPUSCULAR VOLUME 96.9 fl (80.0-96.0); MONO # 0.8 10^3/uL (0.0-0.8); MONO % 12.1 % (0.0-5.0); NEUTROPHILS % 71.9 % (36.0-66.0); PLATELET COUNT, AUTOMATED 257 10^3/uL (150-450); RED BLOOD COUNT 3.81 10^6/uL (4.00-5.40)
[2020-03-08] MEDS ORDERED: VANCOMYCIN HCL 1,000 MG, VIAL MATE ADAPTER 1 EACH in D5W 250 ML IV ONE (23:15)
[2020-03-08 23:25] LABS: INR 0.9; PROTHROMBIN TIME 12.3 SECONDS (12.5-14.3)
[2020-03-08 23:26] LABS: PARTIAL THROMBOPLASTIN TIME 39.2 SECONDS (24.2-38.5)
[2020-03-08 23:44] LABS: ALBUMIN 2.9 GM/DL (3.2-5.2); ALT/SGPT 22 U/L (12-78); AMYLASE 28 U/L (25-115); BILIRUBIN,DIRECT 0.1 MG/DL (0.0-0.2); BILIRUBIN,TOTAL 0.3 MG/DL (0.2-1.0); BLOOD UREA NITROGEN 29 MG/DL (7-18); CALCIUM LEVEL 8.1 MG/DL (8.8-10.2); CARBON DIOXIDE LEVEL 29 MEQ/L (21-32); CHLORIDE LEVEL 104 MEQ/L (98-107); CK-MB VALUE MASS < 1.0 NG/ML (<3.6); CPK CREATINE PHOSPHOKINASE 55 U/L (26-192); CREATININE FOR GFR 2.11 MG/DL (0.55-1.30); GLOMERULAR FILTRATION RATE 24.2 (>39); GLUCOSE, FASTING 220 MG/DL (70-100); MB/CK RELATIVE INDEX 1.82 (< OR =4); POTASSIUM SERUM 4.7 MEQ/L (3.5-5.1); SODIUM LEVEL 139 MEQ/L (136-145); TOTAL PROTEIN 6.7 GM/DL (6.4-8.2); TROPONIN I < 0.02 NG/ML (< 0.10)
[2020-03-08 23:57] LABS: APPEARANCE, URINE CLOUDY (CLEAR); BACTERIA, URINE AUTO 1+ (NEGATIVE); BILIRUBIN, URINE AUTO 1+ (NEGATIVE); BLOOD, URINE BLOOD NEGATIVE (NEGATIVE); COLOR, URINE AMBER (YELLOW); GLUCOSE, URINE (UA) AUTO NEGATIVE (NEGATIVE); KETONE, URINE AUTO NEGATIVE (NEGATIVE); LEUKOCYTE ESTERASE, URINE AUTO 1+ (NEGATIVE); MUCUS, URINE SMALL (NEGATIVE); NITRITE, URINE AUTO NEGATIVE (NEGATIVE); PROTEIN, URINE AUTO 1+ mg/dL (NEGATIVE); RBC, URINE AUTO 8 /HPF (0-3); SPECIFIC GRAVITY URINE AUTO 1.025 (1.002-1.035); SQUAMOUS EPITHELIAL CELL UR AU 24 /HPF (0-6); UROBILINOGEN, URINE AUTO 0.2 mg/dL (0.0-2.0); WBC, URINE AUTO 8 /HPF (0-3)
--- NOTE | 2020-03-09 00:06 | REPVR ---
PROCEDURE INFORMATION: Exam: XR Chest, 1 View Exam date and time: 03/08/2020 11:51 PM Age: 79 years old Clinical indication: Abnormal findings; Other: Sepsis; Additional info: Sepsis/shock TECHNIQUE: Imaging protocol: XR of the chest Views: 1 view. COMPARISON: CT Chest without contrast 09/14/2019 2:20 PM FINDINGS: Lungs: Right perihilar and right base reticulonodular opacities. Pleural space: Unremarkable. No pleural effusion. No pneumothorax. Heart/Mediastinum: Cardiomegaly. Diaphragm: Elevated right hemidiaphragm. Bones/joints: Unremarkable. IMPRESSION: No acute cardiopulmonary pathology Electronically signed by: Christian Mock On 03/09/2020 00:06:10 AM
[2020-03-09 01:04] LABS: ABG BASE EXCESS 0.6 (-2.0-2.0); ABG HCO3 24.5 MEQ/L (22.0-26.0); ABG O2 SATURATION 98.6 % (95.0-99.0); ABG PARTIAL PRESSURE CO2 36.9 mmHg (35.0-45.0); ABG PARTIAL PRESSURE O2 129.5 mmHg (75.0-100.0); ABG TOTAL CO2 25.6 MEQ/L (23.0-31.0)
[2020-03-09 01:08] LABS: RSV AMPLIFICATION NEGATIVE (NEGATIVE)
[2020-03-09 01:33] LABS: D-DIMER QUANT 1672.92 ng/ml (<500)
[2020-03-09 01:42] LABS: FERRITIN 248 NG/ML (8-252); LDH LACTATE DEHYDROGENASE 245 U/L (84-246)
[2020-03-09] MEDS ORDERED: FOLI1TAB11 PO (01:52)
[2020-03-09] MEDS ORDERED: FLON1SPR (01:52)
[2020-03-09] MEDS ORDERED: MAGN400T3 PO (01:52)
[2020-03-09] MEDS ORDERED: FURO20TA2 PO (01:52)
[2020-03-09] MEDS ORDERED: PROP160C PO (01:52)
[2020-03-09] MEDS ORDERED: LISI-538 PO (01:52)
[2020-03-09] MEDS ORDERED: SYNT112T2 PO (01:52)
[2020-03-09] MEDS ORDERED: METH2.5T48 PO (01:52)
[2020-03-09] MEDS ORDERED: GLIP5TAB8 PO (01:52)
[2020-03-09] MEDS ORDERED: LANS30CA PO (01:52)
[2020-03-09] MEDS ORDERED: SULI150T PO (01:52)
[2020-03-09] MEDS ORDERED: VITMTA PO (01:53)
--- NOTE | 2020-03-09 03:12 | HPEPDOC ---
[facility] Medical History & Physical Date of Admission Mar 09, 2020 Date of Service: Mar 09, 2020 Primary Care Physician: Jadon Pinto Attending Physician: PARAG CAPUTO MD History and Physical CHIEF COMPLAINT: Progressive weakness with intermittent fevers HISTORY OF PRESENT ILLNESS: is a 79yo female with notable PMHx of psoriatic arthritis on methotrexate, chronic kidney disease, hypertension, NIDDMII, hypothyroidism, and chronic anemia associated with CK ED, who presented to the [facility] ED late in the evening on 03/08/20 with a chief complaint of 68 weeks of progressive weakness with associated 12 weeks of intermittent feversdecreased appetite and oral intake, as well as loss of taste and smell. She reports being cold at 9:30 in the morning on 03/08 by her PCP (Dr. Jadon Pinto) and being informed that one out of 2 blood cultures that had been drawn after recent outpatient appointment returned positive for Staphylococcus in clusters. As a result, Dr. Pinto rec ommended that she present to the ED. Of note, as result of progressive weakness and intermittent fevers, and some point within the last couple weeks. She and her both were tested for the novel coronavirus and both resulted negative. Nonetheless, due to her ongoing symptoms, both she and her had been self quarantining since. In the ED, she was a repeat covert test resulted as positive. In addition, she was found to have acute renal failure, elevated d-dimer (1672), elevated CRP (13), and positive UA (1+ leuk esterase, 1+ urine bacteria) with urine culture pending. She was administered a one-time IV 270 mL vancomycin dose as well as IV fluids. Repeat blood cultures were obtained to assess for the accuracy of the outpatient /2 sample result. She was subsequently admitted under the care of the hospitalist service primarily for management of her acute renal failure superimposed on chronic kidney disease, possible bacteremia, and monitoring in setting of Covid-19 positive test. PAST MEDICAL HISTORY: Psoriatic arthritis on methotrexate Jaz-[id number] diabetes mellitus2 Hypertension Hypothyroidism Chronic kidney disease, stage III Chronic anemia in the setting of methotrexate administration and CKD PAST SURGICAL HISTORY: Tonsillectomy, 21 years old. Total abdominal hysterectomy with appendectomy, 30 years old. Bilateral salpingo-and oophorectomy, 34 years old Bladder suspension and parotidectomy, 1988 Right carpal tunnel release, 1990. Left knee arthroscopic, 1994. Cholecystectomy, 1997 Colonoscopy with polyp resection, January 2001. Surgical correction of bilateral proptosis, November 2003. Umbilical hernia repair with removal of right thigh lipoma, April 2004 Right index finger DIP fusion, May 2005 Left index finger DIP fusion, January 2006 Rotator cuff repair, February 2009. Right finger and right wrist surgery, April 2009. Right shoulder arthroscopic distal clavicle resection, May 2012 Left total knee arthroplasty, January 2014 Left third and fourth DIP and left thumb MCP fusion, December 2011 MCP joint fusion, September 2011 Right thumb surgery, June 2013 Multiple previous breast aspirations and biopsies, most recent in 2014 with aspiration of breast seroma. Midline abdominal hernia repair, November 2015 SOCIAL HISTORY: , lives with her . She has 2 children, a son and daughter. Denies any current or former tobacco use. She occasionally drank alcohol on a social basis but stopped drinking altogether 20 years ago. Denies any current or former legal drug use FAMILY HISTORY: Father: at 78, prostate cancer Mother: at 74, glioblastoma and skin cancer. Patient has 8 brothers and 2 sisters.: One brother of cerebral aneurysm, another brother had myeloproliferative disorder and histiocytosis, another brother had Hodgkin's lymphoma, a sister had pancreatic cancer, and another brother had skin cancer ALLERGIES: Please see below. REVIEW OF SYSTEMS: CONSTITUTIONAL: Reports generalized progressive weakness, intermittent fevers, chills, and night sweats over the past 2 months. Denies any recent unintentional change in weight EYES: Denies blurry vision, double vision, or eye pain ENT: Reports recent mild dysphagia and odynophagia. Denies runny nose, ear pain, tinnitus, sore throat CARDIOVASCULAR: No chest pain, chest pressure, or palpitations RESPIRATORY: Reports nonproductive cough and moderate dyspnea on exertion. Denies shortness of breath at rest, or pleuritic chest pain GASTROINTESTINAL: Reports decreased appetite intermittent generalized abdominal pain with nausea but no recent episodes of emesis. Denies recent constipation, diarrhea, or blood in stool GENITOURINARY: Reports recent dysuria/burning on urination but not in the past days. Denies hematuria MSK: Reports generalized pain and wrist joint pain that is chronic secondary to psoriatic arthritis NEUROLOGY: Reports recent decrease in taste and smell. Ulcer reports headache. Denies numbness or paresthesias of extremities, gait instability, loss of consciousness HEMATOLOGIC: Denies easy bleeding or bruising LYMPHATIC: Denies any new lumps or bumps anywhere HOME MEDICATIONS: Please see below. PHYSICAL EXAMINATION: VITAL SIGNS: Temperature 99.9, pulse 71, respiratory rate 16, blood pressure 146/85, pulse oximetry 97 % on room air. GENERAL: Was an elderly obese female lying in bed. No acute distress. Alert and oriented 3. HEENT: Normocephalic, atraumatic. Noninjected, anicteric sclera. No conjunctival pallor. Dry mucous membranes with no pharyngeal erythema or exudate. NECK: Supple. Trachea midline. No lymphadenopathy appreciated. RESPIRATORY: Cough elicited at times during exam that sounds dry. Decrease tidal volume with minimally decreased respiratory effort, otherwise no adventitious breath sounds appreciated. Speaking full sentences and breathing room air. CARDIOVASCULAR: Distant heart sounds. Regular rate and regular rhythm. Normal S1, S2. Due to distant heart sounds, difficult to appreciate for rubs or murmurs. ABDOMEN: Soft, obese. Moderate tenderness of right upper quadrant and suprapubic area. No rigidity. Hypoactive bowel sounds present. Due to habitus, difficult to appreciate for hepatosplenomegaly. EXTREMITIES: Bilateral lower extremities free of edema. No clubbing or cyanosis. There are extensive arthritic changes on fingers and MCP joints bilaterally. There are no hot or swollen joints appreciated. NEUROLOGICAL: Awake, alert and oriented 3. No focal neurologic deficits appreciated. Not dysarthric speech. PSYCHIATRIC: Somewhat depressed mood. Affect appears appropriate. LABORATORY DATA: Please see below. IMAGING: Portable chest x-ray, 03/08/20 IMPRESSION: No acute cardiopulmonary pathology MICROBIOLOGY: Please see below. ASSESSMENT & PLAN: This is a 79yo f w/ motable h/o psoriatic arthritis on methotrexate, ckd, htn, NIDDMII, hypothyroidism, and chronic anemia related to CKD, who presented to the ED on 03/08/20 with the chief complaints of progressive weakness over the last 6-8 weeks along with 1-2 weeks of intermittent fevers, decreased appetite, and oral intake, as well as, loss of smell and taste. She was notified earlier on 03/08 by her PCP that 1/2 blood cultures returned positive for staph in clusters. In the ED, she tested positive for Covid 19, and was found to have an acute kidney injury. She was admitted primarily for treatment of SANGEETHA on CKD, workup for possible bacteremia, and monitoring in the setting of positive Covid 19 result. #Acute kidney injury on chronic kidney disease stage III -sCr 2.11 (recent baseline 1.5) / calculated GFR 24% -Due to recent decreased appetite and diminished oral intake, most likely meli ology is prerenal -Workup to define the exact etiology ordered in the form of: monitoring of urine output, IV fluid hydration, urine electrolytes to tabulate fractional excretion of both sodium and urea, and renal ultrasound -Her home diuretic (furosemide) and BJ inhibitor (lisinopril) were both held in the setting of the SANGEETHA -Important that all nephrotoxic medications continue to be held and/or avoided -Request for pathology to review urine microscopy to assess for muddy brown/RBC/WBC/fatty casts to further delineate if there is any intrinsic renal disease in the setting of the SANGEETHA #Possible bacteremia -Per report, patient had 1/2 positive blood cultures recently as an outpatient that grew staph in clusters. Her PCP informed her to present to the ED for further workup on 03/08 -Two initial blood cultures in the ED were drawn and are pending -Patient is status post 1 dose of IV vancomycin -MRSA screen was ordered #COVID-19 Positive -Patient tested negative as an outpatient within the past 2 weeks. Repeat tests in the ED on 03/08 was positive -Patient lives at home with her and has been self quarantining with no known positive contacts or exposures. -Continuous pulse oximetry ordered with oxygen titration goal of greater than 92% -Patient has no known significant pulmonary history -Covid 19 workup profile ordered; at time of admission her d-dimer was elevated (1672), CRP was also elevated (13), and lactic acid was unremarkable at 1.1 #Normocytic normochromic anemia in setting of ongoing methotrexate administration and chronic kidney disease -Hgb 11.9 -Upon review of records, patient seems to have chronic anemia most likely secondary to both methotrexate administration and chronic kidney disease -Follow-up CBC ordered #Symptomatic UTI -Urinalysis showed 1+ leuk esterase and 1+ urine bacteria -Patient complained of recent intermittent burning with urination -Urine cultures pending -She is currently receiving IV fluid hydration -She is status post 1 dose of IV vancomycin in the ED -Further treatment at time of admission was deferred in the setting of acute management of SANGEETHA and not having urinary symptoms over the past few days -White count was within normal limits, and no mental status changes have been witnessed since presentation #Psoriatic arthritis on methotrexate -Patient reports being diagnosed roughly 15 years ago with psoriatic arthritis and has been on methotrexate and folic acid ever since -She is immunocompromised due to the methotrexate, and in the setting of the positive Covid test, the potential for decline in status is heightened -In the setting of positive Covid, as well as SANGEETHA, methotrexate being held -Folic acid continued #NIDDMII -Takes only glipizide as outpatient -December 2019 A1c was 6.8% -Glipizide being held upon admission. She has been placed on sliding scale insulin before meals and at bedtime with fingersticks ordered as well for before meals and at bedtime. -Hypoglycemic protocol -IV fluids running #HTN -Home lisinopril and furosemide being held in the setting of her acute kidney injury #Hypothyroidism -Home levothyroxine continued #DVT prophylaxis: 30mg SC lovenox qd (calculated creatinine clearance was 31, as this is borderline, 30 mg Lovenox chosen over 40 mg) Disposition: Admitted to the floor main/Covid floor with anticipated at least two midnight stay with treatment for SANGEETHA and possible bacteremia in the setting of positive Covid test. Vital Signs Vital Signs Date Time Temp Pulse Resp B/P (MAP) Pulse Ox O2 Delivery O2 Flow Rate FiO2 03/08/20 22:17 99.9 71 16 146/85 (105) 97 Room Air Laboratory Data Labs 24H Laboratory Tests 2 03/08/20 23:05: Immature Granulocyte % (Auto) 0.4, Neutrophils (%) (Auto) 71.9H, Lymphocytes (%) (Auto) 14.3L, Monocytes (%) (Auto) 12.1H, Eosinophils (%) (Auto) 1.0, Basophils (%) (Auto) 0.3, Neutrophils # (Auto) 5.0, Lymphocytes # (Auto) 1.0L, Monocytes # (Auto) 0.8, Eosinophils # (Auto) 0.1, Basophils # (Auto) 0.0, Nucleated Red Blood Cells % (auto) 0.0, Prothrombin Time 12.3, Prothromb Time International Ratio 0.90, Activated Partial Thromboplast Time 39.2H, D-Dimer, Quantitative 1672.92H, Urine Color SALONI, Urine Appearance CLOUDYH, Urine pH 5.0, Urine Specific [place] 1.025, Urine Protein 1+H, Urine Glucose (Auto)(UA) NEGATIVE, Urine Ketones (Auto) NEGATIVE, Urine Blood NEGATIVE, Urine Nitrite NEGATIVE, Urine Bilirubin 1+H, Urine Urobilinogen 0.2, Urine Leukocyte Esterase (Auto) 1+H, Urine WBC (Auto) 8H, Urine RBC (Auto) 8H, Urine Hyaline Casts (Auto) 0, Urine Bacteria (Auto) 1+H, Urine Squamous Epithelial Cells 24, Urine Mucus (Auto) SMALL, Urine Sperm (Auto) , Anion Gap 6L, Glomerular Filtration Rate 24.2L, Lactic Acid Level 1.1, Calcium Level 8.1L, Ferritin 248, Total Bilirubin 0.3, Direct Bilirubin 0.1, Aspartate Amino Transf (AST/SGOT) 23, Alanine Aminotransferase (ALT/SGPT) 22, Alkaline Phosphatase 94, Lactate Dehydrogenase 245, Total Creatine Kinase 55, Creatine Kinase MB < 1.0, Creatine Kinase MB Relative Index 1.82, Troponin I < 0.02, C-Reactive Protein, Quantitative 13.00H, Total Protein 6.7, Albumin 2.9L, Albumin/Globulin Ratio 0.8L, Amylase Level 28, Coronavirus (COVID-19)(PCR) POSITIVEA, Influenza Type A (RT-PCR) NEGATIVE, Influenza Type B (RT-PCR) NEGATIVE, Respiratory Syncytial Virus (PCR) NEGATIVE 03/09/20 00:55: Blood Gas Bicarbonate Standard 25.0, Arterial Blood pH 7.440, Arterial Blood Partial Pressure CO2 36.9, Arterial Blood Partial Pressure O2 129.5H, Arterial Blood Total CO2 25.6, Arterial Blood HCO3 24.5, Arterial Blood Base Excess 0.6, Arterial Blood Oxygen Saturation 98.6 CBC/BMP Laboratory Tests 03/08/20 23:05 Microbiology Microbiology 03/08/20 Blood Culture, Received Pending 03/08/20 Blood Culture, Received Pending 03/08/20 Urine Culture, Received Pending Home Medications Scheduled Folic Acid (Folic Acid) 1 Mg Tablet, 1 MG PO BID Glipizide (Glipizide) 5 Mg Tablet, 5 MG PO TID Lansoprazole (Lansoprazole) 30 Mg Capsule.dr, 30 MG PO DAILY Levothyroxine Sodium (Synthroid) 112 Mcg Tablet, 112 MCG PO DAILY Magnesium Oxide (Magnesium Oxide) 400 Mg Tablet, 400 MG PO TID Methotrexate Sodium (Methotrexate) 2.5 Mg Tablet, 7.5 MG PO QWEEK PCP TOLD PATIENT TO HOLD OFF FOR A COUPLE OF WEEKS Multivitamins (Thera M Plus Tablet) 1 Each Tablet, 1 TAB PO DAILY TAKES AT NOON Propranolol HCl (Propranolol HCl ER) 160 Mg Cap.sa.24h, 160 MG PO DAILY Sulindac (Sulindac) 150 Mg Tablet, 150 MG PO DAILY Scheduled PRN Fluticasone Propionate (Flonase Allergy Relief) 9.9 Ml [place].susp, 2 SPRAYS NA DAILY PRN for NASAL CONGESTION Allergies Coded Allergies: Sulfa (Sulfonamide Antibiotics) (Verified Allergy, Unknown, 07/19/19) Uncoded Allergies: preservatives (Allergy, Severe, chest tight, 07/19/19) many more but cant recall (Allergy, Unknown, 07/19/19) A-FIB/CHADSVASC A-FIB History Current/History of A-Fib/PAF?: No Current PO Anticoag Therapy: No GME ATTESTATION GME ATTESTATION My faculty preceptor for this patient encounter was physically present during the encounter and was fully available. All aspects of the patient interview, examination, medical decision making process, and medical care plan development were reviewed and approved by the faculty preceptor. The faculty preceptor is aware and concurs with the plan as stated in the body of this note and will attest to such by his/her cosignature. ATTENDING NOTE TIME OF SERVICE 245AM is a 79 yr old F w a hx of DM, HTN, Psoriatic arthritis and class 2 obesity who was sent from her PCPs office for evaluation of fevers and bottles of blood cx positive for staph in clusters; she will be admitted for management of possible staph bacteremia and SANGEETHA; she also has COVID 19 but is not hypoxemic. Rest per Dr.Schwarzs Andrews&P MONA WAGNER D.O. Mar 09, 2020 03:12 PARAG CAPUTO MD Mar 09, 2020 05:44
[2020-03-09] MEDS ORDERED: FLUTICASONE PROP 0.05% NASAL SPRAY 16 GM (FLONASE) PRN (05:00)
[2020-03-09] MEDS ORDERED: GLUCOSE 4GM CHEW TABLET PO PRN (05:00)
[2020-03-09] MEDS ORDERED: MAALOX 30 ML SUSP *UDC PO PRN (05:00)
[2020-03-09] MEDS ORDERED: DEXTROSE 50% 50 ML SYRINGE IV PRN (05:00)
[2020-03-09] MEDS ORDERED: MOM 30ML SUSPENSION UDC PO PRN (05:00)
[2020-03-09] MEDS ORDERED: GLUCAGON INJ 1MG VIAL SC PRN (05:00)
[2020-03-09 05:10] VITALS: BP 158/83
[2020-03-09] MEDS ORDERED: LEVOTHYROXINE 112MCG TABLET (0.112MG) PO SCH (06:00)
[2020-03-09] MEDS: NS 1,000 ML IV SCH ×2 (06:30→12:42)
[2020-03-09] MEDS: ACETAMINOPHEN 650MG ER TAB (TYLENOL ARTHRITIS) PO PRN ×2 (06:31→15:17)
[2020-03-09 06:36] LABS: HEMATOCRIT 35.3 % (36.0-47.0); HEMOGLOBIN 11.3 g/dl (12.0-15.5); MEAN CORPUSCULAR VOLUME 96.7 fl (80.0-96.0); PLATELET COUNT, AUTOMATED 236 10^3/uL (150-450); RED BLOOD COUNT 3.65 10^6/uL (4.00-5.40)
[2020-03-09 07:05] LABS: CALCIUM LEVEL 8.2 MG/DL (8.8-10.2); CREATININE FOR GFR 1.65 MG/DL (0.55-1.30); GLOMERULAR FILTRATION RATE 32.1 (>39); POTASSIUM SERUM 4.3 MEQ/L (3.5-5.1)
[2020-03-09 08:00] VITALS: O2SAT 94
--- NOTE | 2020-03-09 08:08 | IPNPDOC ---
Text Note Date of Service The patient was seen on 03/09/20. VS,Noel, I+O VS, Fishbone, I+O Laboratory Tests 03/08/20 23:05 03/09/20 06:11 Vital Signs Date Time Temp Pulse Resp B/P (MAP) Pulse Ox O2 Delivery O2 Flow Rate FiO2 03/09/20 05:10 101.0 82 27 158/83 (108) 94 Room Air I&O- Last 24 Hours up to 6 AM 03/09/20 05:59 Intake Total 250 ml Balance 250 ml CHUCKIE ROSENBERG M.D.,PGY-2 Mar 09, 2020 08:08
[2020-03-09] MEDS: HumaLOG INSULIN (NovoLOG) PER UNIT SC SCH ×3 (08:13→17:30)
[2020-03-09] MEDS: MAGNESIUM OXIDE 400 MG TAB (MAG-OX) PO SCH ×2 (08:13→15:17)
[2020-03-09 08:17] VITALS: BP 133/57
[2020-03-09] MEDS ORDERED: ENOXAPARIN 30MG/0.3ML SYRINGE (J1650 PER 10MG) SC SCH (09:00)
[2020-03-09] MEDS ORDERED: PROPRANOLOL 80 MG LA CAP PO SCH (09:00)
[2020-03-09] MEDS ORDERED: FOLIC ACID 1 MG TAB PO SCH (09:00)
[2020-03-09] MEDS ORDERED: MULTIVITAMINS/MINERALS THERAP 1 TAB PO SCH (09:00)
--- NOTE | 2020-03-09 11:58 | DS.PDOC ---
Discharge Summary General Date of Admission Mar 09, 2020 at 01:28 Date of Discharge 03/09/2020 Attending Physician: CARMEN VARNER MD Discharge Summary PROCEDURES PERFORMED DURING STAY: None ADMITTING DIAGNOSES: 1. SANGEETHA on CKD 2. COVID + 3. Rule out Bacteremia DISCHARGE DIAGNOSES: 1. SANGEETHA on CKD 2. COVID + 3. Contaminate blood culture samples COMPLICATIONS/CHIEF COMPLAINT: Sangeetha, Bacteremia, Covid+. HISTORY OF PRESENT ILLNESS: Jessi is a 79yo female with notable PMHx of psoriatic arthritis on methotrexate, chronic kidney disease, hypertension, NIDDMII, hypothyroidism, and chronic anemia associated with [facility] ED, who presented to the [facility] ED late in the evening on 03/08/20 with a chief complaint of 68 weeks of progressive weakness with associated 12 weeks of intermittent fevers decreased appetite and oral intake, as well as loss of taste and smell. She reports being cold at 9:30 in the morning on 03/08 by her PCP (Dr. Jadon Pinto) and being informed that one out of 2 blood cultures that had been drawn after recent outpatient appointment returned positive for Staphylococcus in clusters. As a result, Dr. Pinto recommended that she present to the ED. Of note, as result of progressive weakness and intermittent fevers, and some point within the last couple weeks. She and her both were tested for the novel coronavirus and both resulted negative. Nonetheless, due to her ongoing symptoms, both she and her had been self quarantining since. In the ED, she was a repeat covert test resulted as positive. In addition, she was found to have acute renal failure, elevated d-dimer (1672), elevated CRP (13), and positive UA (1+ leuk esterase, 1+ urine bacteria) with urine culture pending. She was administered a one-time IV 270 mL vancomycin dose as well as IV fluids. Repeat blood cultures were obtained to assess for the accuracy of the outpatient /2 sample result. She was subsequently admitted under the care of the hospitalist service primarily for management of her acute renal failure superimposed on chronic kidney disease, possible bacteremia, and monitoring in setting of Covid-19 positive test. HOSPITAL COURSE: Since patient has arrived in the hospital, she has received fluids at 130 ml/hr which has resolved her SANGEETHA. Her lisinopril, and furosemide were held due to tsi reason. Although she has tested COVID +, her oxygen saturations are 94 on RA. She does not meet our hospital criteria for any intervention. We have phoned the patients PCP, Dr. Jadon eLos who has confirmed that since 1 of the two BC bottles were positive, it is likely contamination. Nonetheless, we have collected our own blood cultures and will contact the patient if positive. Patient has been advised that she will not benefit from any significant intervention while in hospital, and may be discharged home safely. Patient to follow up with PCP within a week of butch ulloa. DISCHARGE MEDICATIONS: Please see below. ALLERGIES: Please see below. PHYSICAL EXAMINATION ON DISCHARGE: GENERAL: looking well. No acute distress. HEENT: EDMOND. EOMI NECK: Supple. Non-tender CARDIOVASCULAR EXAMINATION: Heart sounds 1 + 2 Present. No added sounds. No murmurs, regurgitation. RESPIRATORY EXAMINATION: Clear to auscultation bilaterally ABDOMINAL EXAMINATION: soft. non-tender. non-distended. BS + EXTREMITIES: No pitting edema SKIN: No rashes appreciated NEUROLOGICAL EXAMINATION: AO x 3. No FND. LABORATORY DATA: Please see below. IMAGING: CXR shows no acute cardiopulmonary pathology PROGNOSIS: Good ACTIVITY: As tolerated DIET: low sodium and consistent carbohydrates DISCHARGE PLAN: Home with PCP follow up within a week, preferably within 5 days. DISPOSITION: Home DISCHARGE INSTRUCTIONS: 1. We have held your home medications furosemide and lisinopril as you have presented with a mild acute kidney injury. This should resolve with adequate hydration (water intake). Lisinopril may be restarted after 48 hours. You will have to await your primary care providers instructions to restart the furosemide. 2. Please remain self-isolated at home for at least 10 days or 3 days fever free without the use of antipyretics. Whichever is longer ITEMS TO FOLLOWUP ON ON OUTPATIENT: 1. Blood Cultures collected at [facility] 2. Repeat BMP outpatient 3. Consider restarting furosemide as medically indicated. The patient may restart lisinopril on 03/11 provided adequate fluid intake. 4. Resolution of COVID status DISCHARGE CONDITION:Stable TIME SPENT ON DISCHARGE: Greater than 30 minutes. Vital Signs/I&Os Vital Signs Date Time Temp Pulse Resp B/P (MAP) Pulse Ox O2 Delivery O2 Flow Rate FiO2 03/09/20 08:17 83 133/57 03/09/20 05:10 101.0 27 94 Room Air I&O- Last 24 Hours up to 6 AM 03/09/20 06:00 Intake Total 250 ml Output Total 0 ml Balance 250 ml Laboratory Data Labs 24H Laboratory Tests 2 03/08/20 23:05: Immature Granulocyte % (Auto) 0.4, Neutrophils (%) (Auto) 71.9H, Lymphocytes (%) (Auto) 14.3L, Monocytes (%) (Auto) 12.1H, Eosinophils (%) (Auto) 1.0, Basophils (%) (Auto) 0.3, Neutrophils # (Auto) 5.0, Lymphocytes # (Auto) 1.0L, Monocytes # (Auto) 0.8, Eosinophils # (Auto) 0.1, Basophils # (Auto) 0.0, Nucleated Red Blood Cells % (auto) 0.0, Prothrombin Time 12.3, Prothromb Time International Ratio 0.90, Activated Partial Thromboplast Time 39.2H, Fibrinogen 616H, D-Dimer, Quantitative 1672.92H, Urine Color SALONI, Urine Appearance CLOUDYH, Urine pH 5.0, Urine Specific [place] 1.025, Urine Protein 1+H, Urine Glucose (Auto)(UA) NEGATIVE, Urine Ketones (Auto) NEGATIVE, Urine Blood NEGATIVE, Urine Nitrite NEGATIVE, Urine Bilirubin 1+H, Urine Urobilinogen 0.2, Urine Leukocyte Esterase (Auto) 1+H, Urine WBC (Auto) 8H, Urine RBC (Auto) 8H, Urine Hyaline Casts (Auto) 0, Urine Bacteria (Auto) 1+H, Urine Squamous Epithelial Cells 24, Urine Mucus (Auto) SMALL, Urine Sperm (Auto) , Urine Random Creatinine 295.0, Urine Random Sodium 23, Urine Random Urea Nitrogen 615, Anion Gap 6L, Glomerular Filtration Rate 24.2L, Lactic Acid Level 1.1, Calcium Level 8.1L, Ferritin 248, Total Bilirubin 0.3, Direct Bilirubin 0.1, Aspartate Amino Transf (AST/SGOT) 23, Alanine Aminotransferase (ALT/SGPT) 22, Alkaline Phosphatase 94, Lactate Dehydrogenase 245, Total Creatine Kinase 55, Creatine Kinase MB < 1.0, Creatine Kinase MB Relative Index 1.82, Troponin I < 0.02, C-Reactive Protein, Quantitative 13.00H, Total Protein 6.7, Albumin 2.9L, Albumin/Globulin Ratio 0.8L, Amylase Level 28, Coronavirus (COVID-19)(PCR) POSITIVEA, Influenza Type A (RT-PCR) NEGATIVE, Influenza Type B (RT-PCR) NEGATIVE, Respiratory Syncytial Virus (PCR) NEGATIVE 03/09/20 00:55: Blood Gas Bicarbonate Standard 25.0, Arterial Blood pH 7.440, Arterial Blood Partial Pressure CO2 36.9, Arterial Blood Partial Pressure O2 129.5H, Arterial Blood Total CO2 25.6, Arterial Blood HCO3 24.5, Arterial Blood Base Excess 0.6, Arterial Blood Oxygen Saturation 98.6 03/09/20 06:11: Nucleated Red Blood Cells % (auto) 0.0, Anion Gap 4L, Glomerular Filtration Rate 32.1L, Calcium Level 8.2L, Differential Slide Review Report, Peripheral Blood Smear Path Consult PERIPHERAL SMEAR, NE-Cks-P-Type Natriuretic Peptide 1038H, Triglycerides Level 84, Procalcitonin 0.10 03/09/20 07:53: Bedside Glucose (Misc Panel) 151H 03/09/20 11:45: Bedside Glucose (Misc Panel) 196H CBC/BMP Laboratory Tests 03/08/20 23:05 03/09/20 06:11 FSBS Laboratory Tests Test 03/09/20 07:53 03/09/20 11:45 Range/Units Bedside Glucose (Misc Panel) 151 196 83-110 MG/DL Microbiology Microbiology 03/08/20 Blood Culture, Received Pending 03/08/20 Blood Culture, Received Pending 03/08/20 Urine Culture, Received Pending Discharge Medications Scheduled Folic Acid (Folic Acid) 1 Mg Tablet, 1 MG PO BID, (Reported) Glipizide (Glipizide) 5 Mg Tablet, 5 MG PO TID, (Reported) Lansoprazole (Lansoprazole) 30 Mg Capsule.dr, 30 MG PO DAILY, (Reported) Levothyroxine Sodium (Synthroid) 112 Mcg Tablet, 112 MCG PO DAILY, (Reported) Magnesium Oxide (Magnesium Oxide) 400 Mg Tablet, 400 MG PO TID, (Reported) Methotrexate Sodium (Methotrexate) 2.5 Mg Tablet, 7.5 MG PO QWEEK, (Reported) PCP TOLD PATIENT TO HOLD OFF FOR A COUPLE OF WEEKS Multivitamins (Thera M Plus Tablet) 1 Each Tablet, 1 TAB PO DAILY, (Reported) TAKES AT NOON Propranolol HCl (Propranolol HCl ER) 160 Mg Cap.sa.24h, 160 MG PO DAILY, (Reported) Sulindac (Sulindac) 150 Mg Tablet, 150 MG PO DAILY, (Reported) Scheduled PRN Fluticasone Propionate (Flonase Allergy Relief) 9.9 Ml [place].susp, 2 SPRAYS NA DAILY PRN for NASAL CONGESTION, (Reported) Allergies Coded Allergies: Sulfa (Sulfonamide Antibiotics) (Verified Allergy, Unknown, 07/19/19) Uncoded Allergies: preservatives (Allergy, Severe, chest tight, 07/19/19) many more but cant recall (Allergy, Unknown, 07/19/19) CHUCKIE ROSENBERG M.D.,PGY-2 Mar 09, 2020 11:58
[2020-03-09 12:00] VITALS: O2SAT 96
[2020-03-09 16:00] VITALS: O2SAT 92
[2020-03-09 18:00] VITALS: O2SAT 92
[2020-03-09] MEDS ORDERED: HumaLOG INSULIN (NovoLOG) PER UNIT SC SCH (21:00)
--- NOTE | 2020-03-10 07:34 | ECGEPIP ---
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
== END 2020-03-09 19:05 | disposition home or self-care (01) | DRG 682 ==
LOC: M ED 22:16 → M ED INP 03-09 01:28 → M 4MAIN 03-09 05:10
PROVIDERS: ADMIT Internal Medicine; ATTEND Internal Medicine
DX: N17.9 Acute kidney failure, unspecified (principal); U07.1 COVID-19; N18.30 Chronic kidney disease, stage 3 unspecified; I12.9 Hypertensive chronic kidney disease with stage 1 through stage 4 chronic kidney disease, or unspecified chronic kidney disease; L40.50 Arthropathic psoriasis, unspecified; E03.9 Hypothyroidism, unspecified; D63.1 Anemia in chronic kidney disease; Z79.899 Other long term (current) drug therapy; Z88.2 Allergy status to sulfonamides; E11.9 Type 2 diabetes mellitus without complications; Z96.652 Presence of left artificial knee joint

== ENCOUNTER 2020-03-14 08:03 | Inpatient (IN) | payer OTHER, MEDICAID ==
[2020-03-14] VITALS (10 sets, daily range): BP systolic 142–186; BP diastolic 70–95; O2SAT 92–98
[~2020-03-14] VITALS: Ht 162.6 cm; Wt 86.3 kg
[~2020-03-14 08:03] MED LIST changes: +AMIODARONE HCL 150 MG/100 ML PREMIXED BAG (NEXTERONE) (J0282 PER 30MG) ONE; +ATROPINE SULF 1MG/10ML SYRINGE (J0461) ONE; +FLON1SPR; +FOLI1TAB11 PO; +FURO20TA2 PO; +GLIP5TAB8 PO; +LANS30CA PO; +MAGN400T3 PO; +METH2.5T48 PO; +PROP160C PO; +SULI150T; +SULI150T PO; +SYNT112T2 PO; +VITMTA PO
[2020-03-14] MEDS ORDERED: NS 1,000 ML IV SCH ×2 (08:30→12:15)
[2020-03-14 08:55] LABS: BASO % 0.1 % (0.0-1.0); HEMATOCRIT 36.6 % (36.0-47.0); HEMOGLOBIN 11.8 g/dl (12.0-15.5); LYMPH # 0.8 10^3/uL (1.5-5.0); LYMPH % 5.7 % (24.0-44.0); MEAN CORPUSCULAR HEMOGLOBIN 30.8 pg (27.0-33.0); MEAN CORPUSCULAR HGB CONC 32.2 g/dl (32.0-36.5); MEAN CORPUSCULAR VOLUME 95.6 fl (80.0-96.0); MONO # 0.9 10^3/uL (0.0-0.8); MONO % 6.1 % (0.0-5.0); NEUTROPHILS # 12.2 10^3/uL (1.5-8.5); NEUTROPHILS % 87.2 % (36.0-66.0); PLATELET COUNT, AUTOMATED 369 10^3/uL (150-450); RED BLOOD COUNT 3.83 10^6/uL (4.00-5.40)
[2020-03-14 09:20] LABS: ALBUMIN 2.5 GM/DL (3.2-5.2); BILIRUBIN,TOTAL 0.5 MG/DL (0.2-1.0); C REACTIVE PROTEIN QUANTITATIV 18.9 MG/DL (0.00-0.30); CALCIUM LEVEL 8.6 MG/DL (8.8-10.2); CK-MB VALUE MASS 1.5 NG/ML (<3.6); CREATININE FOR GFR 1.57 MG/DL (0.55-1.30); MAGNESIUM LEVEL 2.4 MG/DL (1.8-2.4); MB/CK RELATIVE INDEX 1.81 (< OR =4); POTASSIUM SERUM 4.7 MEQ/L (3.5-5.1); TOTAL PROTEIN 6.8 GM/DL (6.4-8.2); TROPONIN I 0.08 NG/ML (< 0.10)
[2020-03-14 09:21] LABS: PARTIAL THROMBOPLASTIN TIME 31.1 SECONDS (24.2-38.5)
[2020-03-14 09:25] LABS: D-DIMER QUANT 1893.74 ng/ml (<500)
--- NOTE | 2020-03-14 09:29 | REP ---
INDICATION: Coronavirus workup COMPARISON: 03/08/2020 TECHNIQUE: Portable AP view of the chest FINDINGS: Diffuse bilateral patchy airspace disease consistent with multifocal pneumonia and COVID-19 pulmonary disease. No obvious effusion. No pneumothorax. Mediastinum and cardiac silhouette stable. IMPRESSION: Moderate diffuse bilateral infiltrates compatible with multifocal pneumonia and COVID-19 pulmonary disease. <Electronically signed by Geovanny Parra > 03/14/20 [id number]
[2020-03-14 09:35] LABS: INR 1.09; PROTHROMBIN TIME 14.3 SECONDS (12.5-14.3)
[2020-03-14] MEDS ORDERED: LevoFLOXacin IV 750 MG in IV 1 EA IV ONE (09:45)
[2020-03-14] MEDS: ASPIRIN 81 MG ENTERIC TAB PO SCH (11:07)
[2020-03-14] MEDS: dexameTHASONE 4 MG/ML 1ML VIAL (J1100 PER 1MG) IV SCH (11:07)
[2020-03-14] MEDS: ENOXAPARIN 40MG/0.4ML SYRINGE (J1650 PER 10MG) SC SCH ×2 (11:07→21:53)
[2020-03-14] MEDS ORDERED: DEXTROSE 50% 50 ML SYRINGE IV PRN (12:15)
[2020-03-14] MEDS ORDERED: FLUTICASONE PROP 0.05% NASAL SPRAY 16 GM (FLONASE) PRN (12:15)
[2020-03-14] MEDS ORDERED: GLUCOSE 4GM CHEW TABLET PO PRN (12:15)
[2020-03-14] MEDS ORDERED: GLUCAGON INJ 1MG VIAL SC PRN (12:15)
--- NOTE | 2020-03-14 12:54 | ECGEPIP ---
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
[2020-03-14] MEDS: LEVOTHYROXINE 112MCG TABLET (0.112MG) PO SCH (13:57)
[2020-03-14] MEDS: OMEPRAZOLE 20 MG CAP PO SCH (13:57)
[2020-03-14] MEDS: MULTIVITAMINS/MINERALS THERAP 1 TAB PO SCH (13:57)
[2020-03-14] MEDS: LABETALOL 100MG/20ML VIAL IV SCH ×2 (13:59→20:00)
--- NOTE | 2020-03-14 15:22 | HPEPDOC ---
[facility] Medical History & Physical Date of Admission Mar 14, 2020 Date of Service: Mar 14, 2020 History and Physical Chief complaint: Presented to the ER with complaints of shortness of breath and cough History of present illness: Patient is a 79-year-old female who presented to the ER with complaints of shortness of breath and cough. Patient was recently admitted to [facility] on 03/08 and discharged on 03/09. Patient was advised come to the emergency room for further evaluation after she was noted to have a positive blood culture on 03/08 for staph epidermidis. Patient had 1 of 2 blood cultures were positive. Repeat blood cultures were negative; it was ruled to be contaminant. She was subsequently discharged with a saturation of 92-96% on room air. Patient reports that she presented to the emergency room after expressing worsening shortness breath and a nonproductive cough. Patient denies any chest pain or palpitations. Denies any nausea, vomiting, abdomen pain comes patient diarrhea, or urinary discomfort. She has reported a fever at home of 101F, but denies any chills. Patient reports a poor appetite, but is unaware of any weight changes. Past Medical History: Psoriatic arthritis on methotrexate [id number] diabetes mellitus2 Hypertension Hypothyroidism Chronic kidney disease, stage III Chronic anemia in the setting of methotrexate administration and CKD Past Surgical History: Tonsillectomy, 21 years old. Total abdominal hysterectomy with appendectomy, 30 years old. Bilateral salpingo-and oophorectomy, 34 years old Bladder suspension and parotidectomy, 1988 Right carpal tunnel release, 1990. Left knee arthroscopic, 1994. Cholecystectomy, 1997 Colonoscopy with polyp resection, January 2001. Surgical correction of bilateral proptosis, November 2003. Umbilical hernia repair with removal of right thigh lipoma, April 2004 Right index finger DIP fusion, May 2005 Left index finger DIP fusion, January 2006 Rotator cuff repair, February 2009. Right finger and right wrist surgery, April 2009. Right shoulder arthroscopic distal clavicle resection, May 2012 Left total knee arthroplasty, January 2014 Left third and fourth DIP and left thumb MCP fusion, December 2011 MCP joint fusion, September 2011 Right thumb surgery, June 2013 Multiple previous breast aspirations and biopsies, most recent in 2014 with aspiration of breast seroma. 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 Review of Systems: 10 point review of systems complete, all negative otherwise stated in HPI Physical exam: - Vitals: BP [186/95], HR [70], RR [22], Sat [93%NC5L], Temp [98.3F] - General: Lying in bed, Reports shortness of breath, but is speaking in full sentences, AAOx3 - HEENT: NC, AT, PERRLA, EOMI - CVS: RRR, +S1S2 - Lungs: Fair air entry bilaterally, No appreciable wheezing / rales / rhonchi - Abdomen: Soft, Non-distended, Non-tender - Extremities: No lower extremity edema, No calf tenderness - Neuro: No focal motor or sensory deficit - Skin: No visible rashes Labs: See below Imaging: CXR 03/14: Moderate diffuse bilateral infiltrates compatible with multifocal pneumonia and COVID-19 pulmonary disease. EKG: See below Assessment and Plan: Acute hypoxic respiratory failure - likely 2/2 COVID19 - Presented to [facility] with complaints of shortness of breath / non-productive cough - Currently patient is requiring oxygen up to 5 L via nasal cannula - Physical unrevealing - Inflammatory markers are elevated; will continue to trend - Imaging noted above - Will continue with Levofloxacin; Procalcitonin is negative; will repeat in 24- 48 hours - Will start Dexamethasone and Remdesivir (Day#1) - Will c/w incentive spirometry / acapella Leukocytosis - Patient remains hemodynamically stable and afebrile - c/w Levofloxacin (See above) Normocytic anemia - Hg appears to be at baseline s/p Lactic acidosis - Likely 2/2 work of breathing Psoriatic arthritis - Will hold methotrexate (pending repeat procalcitonin) NIDDM2 - Will start ISS Hypertension - Hypertensive urgency - SBP of 180s in the ER - Will resume home medications - Will start Labetolol IV if BP remains elevated Hypothyroidism - c/w Levothyroxine CKD3 - Cr baseline of 1.3-1.7 - Cr appears to be at baseline - Will DC IV fluids - Will hold nephrotoxic medications Chronic anemia - Reported to be 2/2 methotrexate administration and CKD DVT prophylaxis - Will start Lovenox (Weight based prophylaxis) Vital Signs Vital Signs Date Time Temp Pulse Resp B/P (MAP) Pulse Ox O2 Delivery O2 Flow Rate FiO2 03/14/20 13:59 70 186/95 03/14/20 13:42 98.3 22 88 Nasal Cannula 5.0 Laboratory Data Labs 24H Laboratory Tests 2 03/14/20 08:12: Immature Granulocyte % (Auto) 0.9, Neutrophils (%) (Auto) 87.2H, Lymphocytes (%) (Auto) 5.7L, Monocytes (%) (Auto) 6.1H, Eosinophils (%) (Auto) 0.0, Basophils (%) (Auto) 0.1, Neutrophils # (Auto) 12.2H, Lymphocytes # (Auto) 0.8L, Monocytes # (Auto) 0.9H, Eosinophils # (Auto) 0.0, Basophils # (Auto) 0.0, Nucleated Red Blood Cells % (auto) 0.0, Prothrombin Time 14.3H, Prothromb Time International Ratio 1.09, Activated Partial Thromboplast Time 31.1, Fibrinogen 802H, D-Dimer, Quantitative 1893.74H, Anion Gap 9, Glomerular Filtration Rate 34.0L, Lactic Acid Level 2.3*H, Calcium Level 8.6L, Magnesium Level 2.4, Ferritin 840H, Total Bilirubin 0.5, Aspartate Amino Transf (AST/SGOT) 60H, Alanine Aminotransferase (ALT/SGPT) 51, Alkaline Phosphatase 95, Lactate Dehydrogenase 523H, Total Cr eatine Kinase 83, Creatine Kinase MB 1.5, Creatine Kinase MB Relative Index 1.81, Troponin I 0.08, C-Reactive Protein, Quantitative 18.90H, Total Protein 6.8, Albumin 2.5L, Albumin/Globulin Ratio 0.6L, Triglycerides Level 156H, Procalcitonin 0.39 03/14/20 14:07: Lactic Acid Followup at 4 Hours 1.7 CBC/BMP Laboratory Tests 03/14/20 08:12 Microbiology Microbiology 03/14/20 Blood Culture, Received Pending 03/14/20 Blood Culture, Received Pending Home Medications Scheduled Folic Acid (Folic Acid) 1 Mg Tablet, 2 MG PO QPM Glipizide (Glipizide) 5 Mg Tablet, 5 MG PO TID Lansoprazole (Lansoprazole) 30 Mg Capsule.dr, 30 MG PO DAILY Levothyroxine Sodium (Synthroid) 112 Mcg Tablet, 112 MCG PO DAILY Magnesium Oxide (Magnesium Oxide) 400 Mg Tablet, 400 MG PO TID Methotrexate Sodium (Methotrexate) 2.5 Mg Tablet, 7.5 MG PO QWEEK PCP TOLD PATIENT TO HOLD OFF FOR A COUPLE OF WEEKS Multivitamins (Thera M Plus Tablet) 1 Each Tablet, 1 TAB PO DAILY TAKES AT NOON Propranolol HCl (Propranolol HCl ER) 160 Mg Cap.sa.24h, 160 MG PO DAILY Sulindac (Sulindac) 150 Mg Tablet, 150 MG PO DAILY Scheduled PRN Fluticasone Propionate (Flonase Allergy Relief) 9.9 Ml [place].susp, 2 SPRAYS NA DAILY PRN for NASAL CONGESTION Allergies Coded Allergies: Sulfa (Sulfonamide Antibiotics) (Verified Allergy, Mild, RASH, 03/14/20) cefuroxime (Verified Allergy, Mild, RASH, 03/14/20) ciprofloxacin (Verified Allergy, Mild, RASH, 03/14/20) PT TOLERATED 1 DOSE OF LEVAQUIN 03/14 AM clarithromycin (Verified Allergy, Mild, RASH, 03/14/20) amoxicillin (Verified Allergy, Unknown, 03/14/20) clavulanic acid (Verified Allergy, Unknown, 03/14/20) tegaserod (Verified Allergy, Unknown, 03/14/20) Influenza Virus Vaccines (Verified Adverse Reaction, Intermediate, CHEST PAIN, 03/14/20) etanercept (Verified Adverse Reaction, Intermediate, CHEST PAIN, 03/14/20) codeine (Verified Adverse Reaction, Mild, NAUSEA / VOMITING, 03/14/20) gabapentin (Verified Adverse Reaction, Mild, HEADACHE, 03/14/20) tramadol (Verified Adverse Reaction, Mild, INSOMNIA, 03/14/20) Uncoded Allergies: preservatives (Allergy, Severe, chest tight, 07/19/19) ANDREY BLANDON MD Mar 14, 2020 15:22
[2020-03-14] MEDS: MAGNESIUM OXIDE 400 MG TAB (MAG-OX) PO SCH ×2 (15:46→21:52)
[2020-03-14] MEDS: PROPRANOLOL 80 MG LA CAP PO SCH (15:52)
[2020-03-14] MEDS ORDERED: SODIUM CHLORIDE 0.9% INJ 10 ML SYR IV ONE (17:00)
[2020-03-14 17:08] LABS: CK-MB VALUE MASS 2.2 NG/ML (<3.6); MB/CK RELATIVE INDEX 2.47 (< OR =4); TROPONIN I 0.19 NG/ML (< 0.10)
[2020-03-14] MEDS: HumaLOG INSULIN (NovoLOG) PER UNIT SC SCH ×2 (17:31→21:53)
[2020-03-14] MEDS: FOLIC ACID 1 MG TAB PO SCH (21:52)
[2020-03-15] VITALS (16 sets, daily range): BP systolic 62–143; BP diastolic 44–82; PULSE 70; O2SAT 89–93
[2020-03-15] MEDS: LEVOTHYROXINE 112MCG TABLET (0.112MG) PO SCH (05:06)
[2020-03-15 07:07] LABS: BASO % 0.1 % (0.0-1.0); HEMATOCRIT 35.3 % (36.0-47.0); HEMOGLOBIN 11.7 g/dl (12.0-15.5); LYMPH # 1.1 10^3/uL (1.5-5.0); LYMPH % 7.2 % (24.0-44.0); MEAN CORPUSCULAR HEMOGLOBIN 31.9 pg (27.0-33.0); MEAN CORPUSCULAR HGB CONC 33.1 g/dl (32.0-36.5); MEAN CORPUSCULAR VOLUME 96.2 fl (80.0-96.0); MONO # 0.8 10^3/uL (0.0-0.8); MONO % 5.6 % (0.0-5.0); NEUTROPHILS # 12.7 10^3/uL (1.5-8.5); NEUTROPHILS % 86.1 % (36.0-66.0); PLATELET COUNT, AUTOMATED 379 10^3/uL (150-450); RED BLOOD COUNT 3.67 10^6/uL (4.00-5.40); WHITE BLOOD COUNT 14.7 10^3/uL (4.0-10.0)
[2020-03-15 07:24] LABS: INR 1.09; PROTHROMBIN TIME 14.3 SECONDS (12.5-14.3)
[2020-03-15 07:25] LABS: PARTIAL THROMBOPLASTIN TIME 41.9 SECONDS (24.2-38.5)
[2020-03-15] MEDS: HumaLOG INSULIN (NovoLOG) PER UNIT SC SCH ×4 (07:30→21:06)
[2020-03-15] MEDS: MAGNESIUM OXIDE 400 MG TAB (MAG-OX) PO SCH ×2 (08:12→16:00)
[2020-03-15] MEDS: OMEPRAZOLE 20 MG CAP PO SCH (08:12)
[2020-03-15] MEDS: ASPIRIN 81 MG ENTERIC TAB PO SCH (08:12)
[2020-03-15] MEDS: PROPRANOLOL 80 MG LA CAP PO SCH (08:12)
[2020-03-15] MEDS: ENOXAPARIN 40MG/0.4ML SYRINGE (J1650 PER 10MG) SC SCH ×2 (08:13→20:49)
[2020-03-15] MEDS: dexameTHASONE 4 MG/ML 1ML VIAL (J1100 PER 1MG) IV SCH (08:13)
[2020-03-15 08:32] LABS: ALBUMIN 2.3 GM/DL (3.2-5.2); BILIRUBIN,DIRECT 0.3 MG/DL (0.0-0.2); BILIRUBIN,TOTAL 0.7 MG/DL (0.2-1.0); CALCIUM LEVEL 8.6 MG/DL (8.8-10.2); CREATININE FOR GFR 1.4 MG/DL (0.55-1.30); GLOMERULAR FILTRATION RATE 38.8 (>39); MAGNESIUM LEVEL 2.7 MG/DL (1.8-2.4); POTASSIUM SERUM 5.2 MEQ/L (3.5-5.1); TOTAL PROTEIN 6.5 GM/DL (6.4-8.2)
[2020-03-15] MEDS: MULTIVITAMINS/MINERALS THERAP 1 TAB PO SCH (12:11)
--- NOTE | 2020-03-15 12:50 | IPNPDOC ---
Text Note Date of Service The patient was seen on 03/15/20. NOTE Subjective: Patient is a 79-year-old female who presented to the ER with complaints of shortness of breath and cough. Patient was recently admitted to [facility] on 03/08 and discharged on 03/09. Patient was advised come to the emergency room for further evaluation after she was noted to have a positive blood culture on 03/08 for staph epidermidis. Patient had 1 of 2 blood cultures were positive. Repeat blood cultures were negative; it was ruled to be contaminant. She was subsequently discharged with a saturation of 92-96% on room air. Patient reports that she presented to the emergency room after expressing worsening shortness breath and a nonproductive cough. Patient denies any chest pain or palpitations. Patient was admitted to the hospital service for further evaluation and treatment. Patient was seen and examined at the bedside. Currently patient denies any chest pain or palpitations. She reports experience any shortness of breath on e xertion. Reports a mild cough without any significant expectoration. Denies any nausea, vomiting, abdominal pain, diarrhea, or urinary discomfort. Objective: Vitals (See below) General: Sitting up in bed, appears to be comfortable, AAOx3 HEENT: NC, AT CVS: RRR, +S1S2 Lungs: Fair air entry b/l, no appreciable wheezing, rhonchi or rales Abdomen: Soft, nondistended and nontender Extremities: Lower extremities do not reveal any edema, - Calf tenderness Imaging: CXR 03/14: Moderate diffuse bilateral infiltrates compatible with multifocal pneumonia and COVID-19 pulmonary disease. Assessment and plan: Acute hypoxic respiratory failure - likely 2/2 COVID19 pneumonia - Presented to [facility] with complaints of shortness of breath / non-productive cough - Currently patient is still on 5L via [place] - Physical remains unrevealing - Diagnosed positive on 03/08/2020 - Inflammatory markers are elevated; will continue to trend - Imaging noted above - c/w Levofloxacin (Day #2) - will discontinue within 24 hours; if PCT remains negative - c/w Dexamethasone and Remdesivir (Day#2) - c/w incentive spirometry / acapella Elevated troponin - likely 2/2 demand ischemia - Patient denies any chest pain or palpitations - No prior history of heart attacks; reports a negative pharmacologic stress test 2-3 years ago - EKG reviewed, consistent with prior - Will continue to trend troponin - c/w Telemetry - c/w ASA / Lovenox (weight based prophylaxis dose) - Discussed case with cardiology, Dr. Ventura; will continue to trend troponin and manage underlying illness; will not require full anticoagulation at this point Leukocytosis - Patient remains hemodynamically stable and afebrile - c/w Levofloxacin (See above) Normocytic anemia - Hg appears to be at baseline s/p Lactic acidosis - Likely 2/2 work of breathing Psoriatic arthritis - Will hold methotrexate (pending repeat procalcitonin) NIDDM2 - c/w ISS Hypertension - s/p Hypertensive urgency - BP remains well controlled this morning - c/w Propranolol - s/p Labetalol Hypothyroidism - c/w Levothyroxine CKD3 - Cr baseline of 1.3-1.7 - Cr appears to be at baseline - s/p IV fluids - Will hold nephrotoxic medications Chronic anemia - Reported to be 2/2 methotrexate administration and CKD DVT prophylaxis - c/w Lovenox (Weight based prophylaxis) Disposition: - Awaiting clinical improvement VSNoel I+O VSNoel I+O Laboratory Tests 03/15/20 06:46 Vital Signs Date Time Temp Pulse Resp B/P (MAP) Pulse Ox O2 Delivery O2 Flow Rate FiO2 03/15/20 08:12 72 140/82 03/15/20 08:00 98.0 20 96 Nasal Cannula 5.0 I&O- Last 24 Hours up to 6 AM 03/15/20 05:59 Intake Total 1800 ml Output Total 400 ml Balance 1400 ml ANDREY BLANDON MD Mar 15, 2020 12:50
[2020-03-15] MEDS ORDERED: SODIUM CHLORIDE 0.9% INJ 10 ML SYR IV SCH (16:00)
--- NOTE | 2020-03-15 18:05 | ECGEPIP ---
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
--- NOTE | 2020-03-15 18:17 | ECGEPIP ---
[facility] Test Date: 2020-03-15 Pat Name: CESAR GUEVARA Department: Room: [place] [address] Gender: Female Shampoo Person: SONALI : 1940 Requested By: Gina Horvath Order Number: [id number] Reading MD: Jadon Pinto Measurements Intervals [place] Rate: 91 P: 51 DE: 213 QRS: -83 QRSD: 93 T: 244 QT: 432 QTc: 532 Interpretive Statements Normal sinus rhythm with first-degree AV block Left anterior fascicular block Incomplete right bundle branch block Anterior NC, age indeterminate Diffuse repolarization abnormalities Compared to prior tracing of earlier this date, there are no significant changes e except for a faster heart rate Electronically Signed on 03-15-2020 18:17:01 EST by Jadon Pinto
[2020-03-15] MEDS: FOLIC ACID 1 MG TAB PO SCH (20:48)
[2020-03-15] MEDS ORDERED: MIDAZOLAM INJ 2MG/2ML VIAL (J2250 PER 1MG) As Ordered ONE (23:05)
[2020-03-15] MEDS: MIDAZOLAM INJ 2MG/2ML VIAL (J2250 PER 1MG) IV PRN ×2 (23:10→23:25)
[2020-03-15 23:14] LABS: ABG BASE EXCESS -8.1 (-2.0-2.0); ABG HCO3 20.2 MEQ/L (22.0-26.0); ABG O2 SATURATION 84.3 % (95.0-99.0); ABG PARTIAL PRESSURE O2 58.7 mmHg (75.0-100.0); ABG STANDARD HCO3 17.7 MEQ/L (22.0-26.0); ABG TOTAL CO2 21.8 MEQ/L (23.0-31.0)
[2020-03-15] MEDS ORDERED: MIDAZOLAM INJ 2MG/2ML VIAL (J2250 PER 1MG) IV PRN (23:15)
[2020-03-15 23:17] LABS: ABG pH (ARTERIAL) 7.198 UNITS (7.350-7.450)
[2020-03-15] MEDS ORDERED: SODIUM BICARBONATE 8.4% INJ 50 ML SYRINGE As Ordered ONE (23:20)
[2020-03-15 23:37] LABS: HEMATOCRIT 35.9 % (36.0-47.0); MEAN CORPUSCULAR HEMOGLOBIN 30.4 pg (27.0-33.0); MEAN CORPUSCULAR HGB CONC 30.6 g/dl (32.0-36.5); MEAN CORPUSCULAR VOLUME 99.2 fl (80.0-96.0); PLATELET COUNT, AUTOMATED 447 10^3/uL (150-450); RED BLOOD COUNT 3.62 10^6/uL (4.00-5.40); WHITE BLOOD COUNT 16.5 10^3/uL (4.0-10.0)
--- NOTE | 2020-03-15 23:37 | REPVR ---
PROCEDURE INFORMATION: Exam: XR Chest, 1 View Exam date and time: 03/15/2020 10:55 PM Age: 79 years old Clinical indication: Other: Chest tube, then chest tube correction; Additional info: Intubated TECHNIQUE: Imaging protocol: XR of the chest Views: 1 view. COMPARISON: CR PORTABLE CHEST X-RAY 03/14/2020 9:17 AM FINDINGS: Tubes, catheters and devices: An endotracheal tube is present with its tip in the midtrachea. Nasogastric tube is present with its tip in the upper stomach. Lungs: There is extensive interstitial and alveolar pneumonic infiltrate in the parahilar regions greatest on the right. This has markedly increased since yesterday and consistent with extensive areas of pneumonic infiltrate related to COVID-19. Pleural space: There is no evidence of pneumothorax or pleural effusion. Heart/Mediastinum: Moderate cardiomegaly is present. Diaphragm: There is moderate elevation of the right hemidiaphragm some of which is chronic. Bones/joints: Unremarkable. IMPRESSION: 1. An endotracheal tube has its tip in the midtrachea. 2. Extensive interstitial and alveolar pneumonic infiltrate in the parahilar regions bilaterally but greater on the right markedly increasing since yesterday consistent with progressive COVID. Electronically signed by: Aaron Montano On 03/15/2020 23:37:36 PM
[2020-03-15] MEDS ORDERED: PROPOFOL 1,000 MG/100 ML VIAL As Ordered ONE (23:39)
[2020-03-15] MEDS ORDERED: EPINEPHrine INJ 1 MG/ML 1ML AMP As Ordered ONE (23:55)
[2020-03-15] MEDS ORDERED: EPINEPHrine 1MG/10ML SYRINGE 1.5IN ONE (23:59)
[2020-03-15] MEDS ORDERED: SODIUM BICARBONATE 8.4% INJ 50 ML SYRINGE ONE (23:59)
[2020-03-16] VITALS (13 sets, daily range): BP systolic 45–204; BP diastolic 28–130
[2020-03-16] MEDS: MIDAZOLAM INJ 2MG/2ML VIAL (J2250 PER 1MG) IV PRN
[2020-03-16] MEDS ORDERED: NOREPINEPHRINE BITARTRATE 8 MG in D5W 492 ML IV STA (00:09)
[2020-03-16] MEDS ORDERED: NOREPINEPHRINE 4 MG/4 ML AMP As Ordered ONE (00:12)
[2020-03-16] MEDS ORDERED: NOREPINEPHRINE BITARTRATE 8 MG in D5W 492 ML IV SCH ×2 (00:12→00:45)
[2020-03-16] MEDS ORDERED: VASOPRESSIN INJ 20 UNITS/ML VIAL As Ordered ONE (00:16)
[2020-03-16 00:20] LABS: CALCIUM LEVEL 8.4 MG/DL (8.8-10.2); CREATININE FOR GFR 1.88 MG/DL (0.55-1.30); GLOMERULAR FILTRATION RATE 27.6 (>39); POTASSIUM SERUM 6.1 MEQ/L (3.5-5.1)
[2020-03-16 00:21] LABS: ALBUMIN 2.3 GM/DL (3.2-5.2); BILIRUBIN,TOTAL 1.1 MG/DL (0.2-1.0); MAGNESIUM LEVEL 3.3 MG/DL (1.8-2.4); PHOSPHORUS LEVEL 7.7 MG/DL (2.5-4.9); TOTAL PROTEIN 6.4 GM/DL (6.4-8.2)
[2020-03-16 00:24] LABS: ABG BASE EXCESS -5.5 (-2.0-2.0); ABG HCO3 19.9 MEQ/L (22.0-26.0); ABG O2 SATURATION 71.8 % (95.0-99.0); ABG PARTIAL PRESSURE CO2 38.6 mmHg (35.0-45.0); ABG STANDARD HCO3 19.5 MEQ/L (22.0-26.0); ABG TOTAL CO2 21.1 MEQ/L (23.0-31.0); ABG pH (ARTERIAL) 7.331 UNITS (7.350-7.450)
[2020-03-16] MEDS ORDERED: SODIUM CHLORIDE 0.9% 1000ML IV ONE (00:45)
[2020-03-16] MEDS ORDERED: VASOPRESSIN INJ 20 UNITS in NS 499 ML IV SCH (00:45)
[2020-03-16] MEDS ORDERED: NS 1,000 ML IV SCH (01:00)
--- NOTE | 2020-03-16 04:23 | IPNPDOC ---
Text Note Date of Service The patient was seen on 03/16/20. NOTE Called by nurse around 10:25 pm to bedside as patient was desaturating. Patient appeared weak and altered. While examining patient, she began continuously desaturating and pulse rate soon became unable to be palpated. Max cart team called in. PEA rhythm identified and ACLS algorithm initiated. First IV line malfunctioning and IO access was obtained instead. 1 round of epinephrine and 1 amp of bicarb given. Patient achieved ROSC soon thereafter. Patient intubated and transferred to ICU. Dr. Oliver (pulmonology) called and helped place femoral line. called and made aware of situation. While in ICU, during fem line placement, patient had another episode of PEA a round midnight. ACLS algorithm initiated. S/p one round of epi. Patient achieved ROSC shortly after. ART line placed by Dr. Oliver afterwards. Around 2:30 am, patient coded once again. PEA rhythm identified and ACLS algorithm once again initiated. S/P [address] Jiang spoke with patient's son who is the health care proxy. Her son wanted comfort measures only. Pronounced at 3:10 am. For further details, please refer to code sheets in chart. VS,Fishbone, I+O VS, Fishbone, I+O Laboratory Tests 03/15/20 06:46 03/15/20 23:31 Vital Signs Date Time Temp Pulse Resp B/P (MAP) Pulse Ox O2 Delivery O2 Flow Rate FiO2 03/16/20 01:07 35 59 100 03/15/20 20:00 10.0 03/15/20 20:00 98.2 67 117/69 (85) High Flow Cannula I&O- Last 24 Hours up to 6 AM 03/16/20 06:00 Intake Total 300 ml Output Total 0 ml Balance 300 ml CHUCKIE ROSENBERG M.D.,PGY-2 Mar 16, 2020 04:23 CORINA JIANG MD Mar 16, 2020 07:00
--- NOTE | 2020-03-16 08:11 | RO ---
OPERATIVE NOTE DATE OF OPERATION: 03/16/2020 PREOPERATIVE DIAGNOSIS: Respiratory failure. POSTOPERATIVE DIAGNOSIS: Respiratory failure. PROCEDURE: Insertion of intra-arterial catheter. SITE: Right femoral artery. SURGEON: Chase Oliver M.D. CONSENT: Procedure was performed emergently. DESCRIPTION OF PROCEDURE: After the right femoral area was prepped and draped in the usual sterile manner, the right femoral artery was easily cannulated. Using modified Seldinger technique, an intra-arterial catheter was placed. Good arterial flow was noted through the catheter. It was hooked to the monitor and good arterial waveform noted. The line was then sutured in place. Sterile dressing applied. No complications noted.
--- NOTE | 2020-03-16 08:11 | RO ---
OPERATIVE NOTE DATE OF OPERATION: 03/15/2020 PREOPERATIVE DIAGNOSIS: Hypotension. POSTOPERATIVE DIAGNOSIS: Hypotension. PROCEDURE: Insertion of triple central venous catheter. SITE: Right femoral vein. SURGEON: Chase Oliver M.D. CONSENT: This procedure was performed emergently. DESCRIPTION OF PROCEDURE: After the right femoral area was prepped and draped in the usual sterile manner, the right femoral vein was easily cannulated. Using modified Seldinger technique, a triple lumen central venous catheter was easily advanced. Good venous return at the end from all three ports. The line was then sutures in place. Each port was then flushed. Sterile dressing applied. No immediate complications identified.
--- NOTE | 2020-03-16 08:32 | CCN ---
CRITICAL CARE NOTE DATE: 03/15/2020 into 03/16/2020 START TIME: 2314 STOP TIME: 55 SUBJECTIVE: I was called to attend Mabel Vasquez after she had a MAX cart on the med-surg floor. In essence, this is a 79-year-old female admitted on 03/14/2020, with shortness of breath and cough. She was found to be COVID positive and was requiring supplemental oxygen. Chest x-ray showed to be consistent with COVID. She did have a fever at home. She was receiving full dose protocol with remdesivir, Decadron, and dose adjusted Lovenox. Apparently, she was doing well; but while conversing with the nurse, became unresponsive. MAX cart was called. She was found to be in pulseless electrical activity (PEA). Intubated by the code team. Had multiple runs of epinephrine and atropine. An intraosseous IV line was placed during that code. Blood gas obtained at that time had a pH of 7.198, pCO2 of 53.0, and PaO2 of 58.7. On my arrival, oxygen saturation was still quite low and ventilator adjustments were made. Triple lumen central venous catheter was placed occupying less than 5 minutes time. During placement of that line as the pulse was being monitored for placement, she had loss of pulse and again had PEA. MAX cart was again called, CPR, epinephrine, and atropine. She had return of circulation. Femoral A-line was placed after return of pulse for closer monitoring, occupying again approximately two minutes time. She then had PEA again, but this responded to epinephrine without the need for CPR. Levophed and vasopressin, as well as IV fluid bolus were administered. With Levophed running at 20 mcg, vasopressin at 60 mL/hour and an additional fluid bolus, her blood pressure was maintaining a systolic of about 110 to 120 with a heart rate in the 90s. Echocardiogram is pending. Repeat arterial blood gas showed a pH of 7.331, pCO2 of 38.6, and a PaO2 of only 42. We attempted to give her higher levels of PEEP, but she was intolerant of this; as with any increase in her PEEP, she has a rapid decline in her oxygen saturation level. I had a long discussion by phone with her son who is driving in from [facility]. He said the patient's is quite hard of hearing and he is driving up to [place] to be with him. OBJECTIVE: At this point on exam, she is sedate, but agitated at times. Does move all extremities. Pupils do react. Membranes are moist. She is mildly pale. Chest shows symmetric expansion. There are some inspiratory crackles and wheezes. Cardiac exam is distant with muffled tones. Peripheral pulses currently are palpable. Abdomen is soft. There are bowel sounds in the distance. No convincing organomegaly or masses. Extremities are cool. Initially, there was some mild mottling that is mildly improved. Neurologically as outlined above. LABORATORY DATA: Current chemistries show sodium 138, K 6.1, chloride 101, CO2 of 25, BUN 53, creatinine 1.88. Lactic acid was 9.2. Bilirubin 1.1. Troponin drawn at 2331 hours was 1.59 up from 1.17. Her CRP drawn earlier today was 20.7. White blood cell count 16.5, hemoglobin 11.0, platelet count 447,000. ASSESSMENT: Most pressing problems requiring my immediate presence at the bedside: 1. Hypoxemic respiratory failure in the face of COVID pneumonia. 2. Status post MAX cart. 3. Profound hypotension. 4. MAX cart essentially x3 with pulseless electrical activity (PEA). 5. Abnormal troponins. PLAN: At this point, we will assure adequate volume resuscitation. Her lactate will be followed. We are getting a stat echo. For now, we will continue her current vasopressors. My hope is that we can see some improvement in her oxygenation status; as if we are not able to improve that, then all other points are moot. I did discuss the gravity of her situation with her son. For now, we will continue with full code status. She is on ulcer and DVT prophylaxis. At this point, I am in agreement with orders as written by the primary service. At this point, she is quite critically ill and there is a very high likelihood she may not survive this hospitalization. CRITICAL CARE TIME: I left the bedside at 0056 hours. There were 99 minutes of critical care time delivered at the bedside; approximately 5 minutes of which was occupied with procedures.
[2020-03-16] MEDS ORDERED: LevoFLOXacin IV 750 MG in IV 1 EA IV SCH (10:00)
[2020-03-16] MEDS ORDERED: SODIUM CHLORIDE 0.9% INJ 10 ML SYR IV SCH (15:00)
--- NOTE | 2020-03-16 16:14 | DS.PDOC ---
Discharge Summary General Date of Admission Mar 14, 2020 at 10:41 Date of Discharge 03/16/2020 Discharge Summary PROCEDURES PERFORMED DURING STAY: On 03/16/2020 the following were performed by Dr. Oliver: 1. Insertion of triple central venous catheter. 2. Insertion of intra-arterial catheter. ADMITTING DIAGNOSES / DISCHARGE DIAGNOSES: Shock Ventilator dependent respiratory failure Acute hypoxic respiratory failure - likely 2/2 COVID19 pneumonia Elevated troponin - likely 2/2 demand ischemia 2/2 above Leukocytosis Normocytic anemia s/p Lactic acidosis Psoriatic arthritis NIDDM2 Hypertension Hypothyroidism CKD3 Chronic anemia DVT prophylaxis COMPLICATIONS/CHIEF COMPLAINT: Shortness of breath HISTORY OF PRESENT ILLNESS / HOSPITAL COURSE: Patient is a 79-year-old female who presented to the ER with complaints of shortness of breath and cough. Patient was recently admitted to [facility] on 03/08 and discharged on 03/09. Patient was advised come to the emergency room for further evaluation after she was noted to have a positive blood culture on 03/08 for staph epidermidis. Patient had 1 of 2 blood cultures were positive. Repeat blood cultures were negative; it was ruled to be contaminant. She was subsequently discharged with a saturation of 92-96% on room air. Patient reports that she presented to the ER on03/14 after experiencing worsening shortness breath and a nonproductive cough. Patient denies any chest pain or palpitations. Patient was admitted to the hospital service for further evaluation and treatment. On the evening of 03/15 patient was apparently doing well during the evening and was conversing with the nurse when she went into pulseless electrical activity and a MAX CART was called. She was intubated by the code team had multiple runs of epinephrine and atropine via an intraosseous line. Patient was transitioned to the ICU and placed on the ventilator after she was noted to be significantly hypoxic / respiratory alkalosis. Patient had another 2 episodes of PEA and a MAX CART was called for each. After an extensive discussion between the hospitalist and the family, patient was ultimately made comfort measures after her third code. Patient on 03/16/2020, at 3:08 AM DISCHARGE MEDICATIONS: Please see below. ALLERGIES: Please see below. DISPOSITION: Vital Signs/I&Os Vital Signs Date Time Temp Pulse Resp B/P (MAP) Pulse Ox O2 Delivery O2 Flow Rate FiO2 03/16/20 03:08 0 0 0 03/16/20 03:00 91/50 (61) Ventilator 100 204/130 (158) 03/15/20 20:00 10.0 03/15/20 20:00 98.2 I&O- Last 24 Hours up to 6 AM 03/16/20 06:00 Intake Total 1300 ml Output Total 0 ml Balance 1300 ml Laboratory Data Labs 24H Laboratory Tests 2 03/15/20 18:57: Troponin I 1.17H 03/15/20 23:10: Blood Gas Bicarbonate Standard 17.7L, Arterial Blood pH 7.198*L, Arterial Blood Partial Pressure CO2 53.0H, Arterial Blood Partial Pressure O2 58.7L, Arterial Blood Total CO2 21.8L, Arterial Blood HCO3 20.2L, Arterial Blood Base Excess - 8.1L, Arterial Blood Oxygen Saturation 84.3L 03/15/20 23:31: Troponin I 1.59#*H, Nucleated Red Blood Cells % (auto) 0.7H, Anion Gap 12, Glomerular Filtration Rate 27.6L, Lactic Acid Level 9.2*H, Calcium Level 8.4L, Phosphorus Level 7.7H, Magnesium Level 3.3H, Total Bilirubin 1.1#H, Aspartate Amino Transf (AST/SGOT) 824H, Alanine Aminotransferase (ALT/SGPT) 436H, Alkaline Phosphatase 262H, Total Protein 6.4, Albumin 2.3L, Albumin/Globulin Ratio 0.6L 03/16/20 00:10: Blood Gas Bicarbonate Standard 19.5L, Arterial Blood pH 7.331L, Arterial Blood Partial Pressure CO2 38.6, Arterial Blood Partial Pressure O2 42.0*L, Arterial Blood Total CO2 21.1L, Arterial Blood HCO3 19.9L, Arterial Blood Base Excess - 5.5L, Arterial Blood Oxygen Saturation 71.8L CBC/BMP Laboratory Tests 03/15/20 23:31 Microbiology Microbiology 03/15/20 Blood Culture, Received Pending 03/14/20 Blood Culture - Preliminary, Resulted No Growth after 48 hours. All Specime... 03/14/20 Blood Culture - Preliminary, Resulted No Growth after 48 hours. All Specime... Discharge Medications Scheduled Folic Acid (Folic Acid) 1 Mg Tablet, 2 MG PO QPM, (Reported) Glipizide (Glipizide) 5 Mg Tablet, 5 MG PO TID, (Reported) Lansoprazole (Lansoprazole) 30 Mg Capsule.dr, 30 MG PO DAILY, (Reported) Levothyroxine Sodium (Synthroid) 112 Mcg Tablet, 112 MCG PO DAILY, (Reported) Magnesium Oxide (Magnesium Oxide) 400 Mg Tablet, 400 MG PO TID, (Reported) Methotrexate Sodium (Methotrexate) 2.5 Mg Tablet, 7.5 MG PO QWEEK, (Reported) PCP TOLD PATIENT TO HOLD OFF FOR A COUPLE OF WEEKS Multivitamins (Thera M Plus Tablet) 1 Each Tablet, 1 TAB PO DAILY, (Reported) TAKES AT NOON Propranolol HCl (Propranolol HCl ER) 160 Mg Cap.sa.24h, 160 MG PO DAILY, (Reported) Sulindac (Sulindac) 150 Mg Tablet, 150 MG PO DAILY, (Reported) Scheduled PRN Fluticasone Propionate (Flonase Allergy Relief) 9.9 Ml [place].susp, 2 SPRAYS NA DAILY PRN for NASAL CONGESTION, (Reported) Allergies Coded Allergies: Sulfa (Sulfonamide Antibiotics) (Verified Allergy, Mild, RASH, 03/14/20) cefuroxime (Verified Allergy, Mild, RASH, 03/14/20) ciprofloxacin (Verified Allergy, Mild, RASH, 03/14/20) PT TOLERATED 1 DOSE OF LEVAQUIN 03/14 AM clarithromycin (Verified Allergy, Mild, RASH, 03/14/20) amoxicillin (Verified Allergy, Unknown, 03/14/20) clavulanic acid (Verified Allergy, Unknown, 03/14/20) tegaserod (Verified Allergy, Unknown, 03/14/20) Influenza Virus Vaccines (Verified Adverse Reaction, Intermediate, CHEST PAIN, 03/14/20) etanercept (Verified Adverse Reaction, Intermediate, CHEST PAIN, 03/14/20) codeine (Verified Adverse Reaction, Mild, NAUSEA / VOMITING, 03/14/20) gabapentin (Verified Adverse Reaction, Mild, HEADACHE, 03/14/20) tramadol (Verified Adverse Reaction, Mild, INSOMNIA, 03/14/20) Uncoded Allergies: preservatives (Allergy, Severe, chest tight, 07/19/19) ANDREY BLANDON MD Mar 16, 2020 16:14
--- NOTE | 2020-03-16 16:26 | ECGEPIP ---
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
--- NOTE | 2020-03-17 17:38 | ECHO ---
DATE OF PROCEDURE: 03/16/2020 Age: 79 Gender: Female Height: 64 inches Weight: 189 pounds REFERRING PHYSICIAN: Chase Oliver M.D. INDICATION: Status post cardiac arrest, hypotension, COVID-19. MEASUREMENTS: Only diastolic parameters were measured. Mitral E wave velocity 84 cm/s Mitral A wave 36 cm/s E prime septal 5.3 cm/s E prime lateral 10.3 cm/s IVC 2.2 cm FINDINGS: This study is of rather limited technical quality, but useful information was obtained. The patient is intubated in sinus rhythm with wide QRS complex. Pressor amines are being infused. There is an extensive wall motion abnormality that involves the mid and distal segments of the left ventricle that are almost completely akinetic. Basal segments though have hyperdynamic contractility. Overall estimated LVEF in the neighborhood of 20% to 25%. Right ventricle does not appear grossly enlarged. Both atria appear grossly normal. Aortic, mitral, tricuspid, and pulmonic valves were all reasonably well seen. There are mild degenerative abnormalities of the aortic and mitral valve, but mobility of leaflets is preserved. Tricuspid and pulmonic valve appear grossly normal. No pericardial effusion is noted. Inferior vena cava is dilated and there is no appreciable collapse with inspiration indicative of high central venous pressure. No pericardial effusion is noted. Aortic root is normal. Aortic arch and abdominal aorta were not well seen. Doppler interrogation reveals no aortic stenosis or insufficiency. Same applies for the mitral valve. There is approximately moderate tricuspid insufficiency with calculated pulmonary artery pressure minimally in the 60s corresponding to at least moderately severe pulmonary hypertension. Pulmonic valve is functionally competent. Mitral inflow pattern and tissue Doppler imaging of the mitral annulus revealed at least grade 2 diastolic dysfunction. CONCLUSIONS: * Study is of difficult technical quality, underlying sinus rhythm with wide QRS complex. * Left ventricle with extensive wall motion abnormality as noted above and overall EF in the neighborhood of 20% to 25%, likely grade 2 diastolic dysfunction. * Approximately moderate tricuspid insufficiency. * High central venous pressure and moderately severe pulmonary hypertension. COMMENTS: The findings of the study are consistent with either Takotsubo cardiomyopathy or ischemic cardiomyopathy. Echo images favor first option. MTDD
== END 2020-03-16 05:45 | disposition expired | DRG 208 ==
LOC: M ED 08:03 → M ED INP 10:41 → ENRESERV 11:45 → M 4MAIN 13:30 → M ICU 03-15 22:55
PROVIDERS: ADMIT Internal Medicine Nephrology; ATTEND Internal Medicine Nephrology
PROC: 5A1935Z Respiratory Ventilation, Less than 24 Consecutive Hours (ICD-10-PCS; principal; 2020-03-15)
DX: U07.1 COVID-19 (principal); J96.01 Acute respiratory failure with hypoxia; J12.89 Other viral pneumonia; E87.2 Acidosis; E87.3 Alkalosis; R57.9 Shock, unspecified; E11.22 Type 2 diabetes mellitus with diabetic chronic kidney disease; N18.30 Chronic kidney disease, stage 3 unspecified; I12.9 Hypertensive chronic kidney disease with stage 1 through stage 4 chronic kidney disease, or unspecified chronic kidney disease; D64.9 Anemia, unspecified; L40.50 Arthropathic psoriasis, unspecified; E03.9 Hypothyroidism, unspecified; D72.829 Elevated white blood cell count, unspecified; Z79.899 Other long term (current) drug therapy; Z88.2 Allergy status to sulfonamides; Z88.0 Allergy status to penicillin; Z88.8 Allergy status to other drugs, medicaments and biological substances; I16.0 Hypertensive urgency; Z51.5 Encounter for palliative care